=== PATIENT | female | born 1965 | race Caucasian/White ===

== ENCOUNTER 2022-11-26 19:38 | Outpatient (REF) | payer BC, SELFPAY ==
[2022-12-02 11:14] LABS: Age Gdln ACOG Testing Note (.); HPV Aptima Negative (Negative); IGP, Aptima HPV, rfx 16/18,45 Note (.)
== END 2022-11-26 19:39 ==
LOC: LAB 19:38
PROVIDERS: PCP Physician Assistant; Visit Provider Physician Assistant
DX: Z12.4 Encounter for screening for malignant neoplasm of cervix (principal)
CPT/HCPCS: 87624; G0145

== ENCOUNTER 2022-12-29 09:53 | Outpatient (OUT) | payer BC, SELFPAY ==
--- NOTE | 2022-12-29 09:59 | MM_ITS ---
Patient: FRANCK AGUILAR Exam Date: 12/29/2022 : 1965 Gender:F Ordering : QUENTIN Dunn . Admission #: [id number] Family : DUKE SUNG D.OKirby Order #: [id number] CLICK HERE TO VIEW EXAM RADIOLOGY REPORT PROCEDURE: MM TOMOSYNTHESIS SCREENING BI COMPARISON: MG MAMM SCREEN 3D ZEV CAD, 12/25/2021. MG MAMM SCREEN 3D ZEV CAD, 12/20/2020. MG MAMM SCREEN ZEV W CAD, 12/16/2019. MAMMO POST BIOPSY UNILATERAL LEFT, 09/27/2008. INDICATIONS: Screening Calculator Name NCI Breast Cancer Risk Assessment Tool 5 Year Breast Cancer Risk 3.60% Lifetime Breast Cancer Risk 19.30% Personal Breast Cancer No Personal Ovarian Cancer No Treatments None Family Cancers Mother with breast cancer at age 55. LOCATION: [facility] BREAST COMPOSITION: Extremely dense, which lowers the sensitivity of mammography. FINDINGS: DIAGNOSTIC CATEGORY 2--BENIGN FINDING: RIGHT BREAST: No significant suspicious finding. Scattered benign-appearing calcifications are present. No significant change has occurred. LEFT BREAST: No significant suspicious finding. Scattered benign-appearing calcifications are present. No significant change has occurred. RECOMMENDATIONS: ROUTINE MAMMOGRAM AND CLINICAL EVALUATION IN 12 MONTHS. PLEASE NOTE: A NORMAL MAMMOGRAM DOES NOT EXCLUDE THE POSSIBILITY OF BREAST CANCER. A CLINICALLY SUSPICIOUS PALPABLE LUMP SHOULD BE BIOPSIED. Dictated by: Franc Leo M.D. on 12/30/2022 at 09:18 Approved by: Franc Leo M.D. on 12/30/2022 at 09:58
--- NOTE | 2022-12-29 09:59 | XR_ITS ---
[address] [address] Patient Name: FRANCK AGUILAR MRN: [id number] date: 1965 Sex: F Assigned Patient Location: [facility] Current Patient Location: [facility] Accession/Order Number: [id number] Exam Date: 12/29/2022 10:17 Report Date: 12/29/2022 11:07 At the request of: DONNA WIN Procedure: XR DEXA axial skeleton EXAMINATION: XR DEXA axial skeleton HISTORY: Osteoporosis, Well Woman Exam COMPARISON: DEXA bone densitometry 10/09/2020 TECHNIQUE: Dual-energy X-ray absorptiometry (DXA) was performed. FINDINGS: SPINE ANALYSIS: Average bone mineral density is 0.931 g/cm2. T-score (standard deviation relative to young adult mean): -2.1 . -11.6% change since prior study. HIP ANALYSIS: Lowest bone mineral density is within the right femoral trochanter, 0.562 g/cm2. T-score (standard deviation relative to young adult mean): -2.5 . -5.8% change since prior study. IMPRESSION: World [employer] Organization Classification: Osteoporosis - High Fracture Risk Electronically authenticated by: MAYA WOLF Date: 12/29/2022 11:07
== END 2022-12-29 09:54 | disposition home or self-care (01) ==
PROVIDERS: PCP Family Medicine; Visit Provider Physician Assistant
DX: Z12.31 Encounter for screening mammogram for malignant neoplasm of breast (principal); Z80.3 Family history of malignant neoplasm of breast; M81.0 Age-related osteoporosis without current pathological fracture
CPT/HCPCS: 77063; 77067; 77080

== ENCOUNTER 2024-01-01 10:16 | Outpatient (OUT) | payer BC, SELFPAY ==
--- NOTE | 2024-01-01 10:20 | MM_ITS ---
Patient Name: FRANCK AGUILAR MR#: [id number] : 1965 Exam Date: 01/01/2024 Ordering Doctor: DR Stiven Mehta . RADIOLOGY REPORT PROCEDURE: MM TOMOSYNTHESIS SCREENING BI COMPARISON: MM TOMOSYNTHESIS SCREENING BI, 12/29/2022. MG MAMM SCREEN 3D ZEV CAD, 12/25/2021. INDICATIONS: Screening Calculator Name NCI Breast Cancer Risk Assessment Tool 5 Year Breast Cancer Risk 3.70% Lifetime Breast Cancer Risk 18.90% Personal Breast Cancer No Personal Ovarian Cancer No Treatments None Family Cancers Mother with breast cancer at age 55. LOCATION: [facility] BREAST COMPOSITION: The breasts are extremely dense, which lowers the sensitivity of mammography. FINDINGS: DIAGNOSTIC CATEGORY 2--BENIGN FINDING. NO CHANGE FROM COMPARISON. Scattered benign-appearing nodules are present. Scattered benign-appearing calcifications are present. Scattered benign-appearing lymph nodes are present. RIGHT BREAST: No significant suspicious finding. LEFT BREAST: No significant suspicious finding. RECOMMENDATIONS: ROUTINE MAMMOGRAM AND CLINICAL EVALUATION IN 12 MONTHS. PLEASE NOTE: A NORMAL MAMMOGRAM DOES NOT EXCLUDE THE POSSIBILITY OF BREAST CANCER. A CLINICALLY SUSPICIOUS PALPABLE LUMP SHOULD BE BIOPSIED. Dictated by: Brett Rivera MD on 01/01/2024 at 12:57 Approved by: Brett Rivera MD on 01/01/2024 at 12:58
== END 2024-01-01 10:17 | disposition home or self-care (01) ==
LOC: MAMMO 10:16
PROVIDERS: PCP Family Medicine; Visit Provider Obstetrics & Gynecology
DX: Z12.31 Encounter for screening mammogram for malignant neoplasm of breast (principal); Z80.3 Family history of malignant neoplasm of breast
CPT/HCPCS: 77063; 77067

== ENCOUNTER 2024-02-09 19:34 | Outpatient (REF) | payer BC, SELFPAY ==
[2024-02-12 15:10] LABS: Age Gdln ACOG Testing Note (.); HPV Aptima Negative (Negative); IGP, Aptima HPV, rfx 16/18,45 Note (.)
== END 2024-02-09 19:35 | disposition home or self-care (01) ==
LOC: LAB 19:34
PROVIDERS: PCP Family Medicine; Visit Provider Physician Assistant
DX: Z01.419 Encounter for gynecological examination (general) (routine) without abnormal findings (principal)
CPT/HCPCS: 87624; 88175

== ENCOUNTER 2025-01-04 11:20 | Outpatient (OUT) | payer OTHER, SELFPAY ==
--- OUTSIDE RECORDS SUMMARY | 2025-01-04 11:22 | XMS_ITS | Encounter Summary ---
Author Organization [facility] Address [address] [address] Care Team Providers Care [employer] Sales Engineer Name Role Phone Ashish Mcdonald MD Primary Care Provider [phone] Encounter Details Date Type Department Care Team (Late st Contact Info) Description 10/12/2023 Abstract [facility] OB [address] [place] [id number] Tyesha Keenan LPN [address] [place] [address] Social History Tobacco Use Types Packs/Day Years Used Date Smoking Tobacco: Never Assessed Comments No Sex and Gender Information Value Date Recorded Sex Assigned at Female 12/28/2022 11:36 AM EDT Legal Sex Female 6:42 PM EDT Gender Identity Female 12/28/2022 11:36 AM EDT Sexual Orientation Not on file documented as of this encounter Plan of Treatment Upcoming Encounters Date Type Department Care Team (Late st Contact Info) Description 02/13/2025 2:00 PM EDT Office Visit [facility] OB [address] [place] [address] [place] [phone] Erendira Dunn PA [address] [place], [place] [address] documented as of this encounter Visit Diagnoses Not on filedocumented in this encounter Care Teams [employer] Sales Engineer Relationship Specialty Start Date End Date Ashish Mcdonald MD PCP - General Family Medicine 11/26/22 documented as of this encounter
--- OUTSIDE RECORDS SUMMARY | 2025-01-04 11:22 | XMS_ITS | Clinical Summary ---
Author Organization [facility] Address [address] [place] [address] Phone Care Team Providers Care Control Room Agent Name Role Phone Unavailable Primary Care Provider Unavailabl e Social History Tobacco Use Types Packs/Day Years Used Date Smoking Tobacco: Never Assessed Comments Unknown Sex and Gender Information Value Date Recorded Sex Assigned at Not on file Legal Sex Female 3:30 PM EST Gender Identity Not on file Sexual Orientation Not on file Last Filed Vital Signs Vital Sign Reading Time Taken Comments Blood Pressure - - Pulse - - Temperature - - Respiratory Rate - - Oxygen Saturation - - Inhaled Oxygen Concentration - - Weight 62.6 kg (138 lb) 11/25/2021 8:38 AM EDT Height 167.6 cm (5' 6 ) 11/25/2021 8:38 AM EDT Body Mass Index 22.27 11/25/2021 8:38 AM EDT Plan of Treatment Health Maintenance Due Date Last Done Comments CT Colonography 1965 Colonoscopy 1965 Colorectal Cancer Screening 1965 FIT-DNA (Cologuard) 1965 FIT 1965 HIV Screening 1965 Lipid Panel 1965 Sigmoidoscopy 1965 Yearly Adult Physical 1965 MMR Vaccines (1 of 1 - Standard series) 1965 Hepatitis C Screening 1982 HPV/Cotest 1985 DTaP/Tdap/Td Vaccines (1 - Tdap) 1986 Mammogram 2004 Cervical Cancer Screening 05/23/2006 Pap Smear 05/23/2006 05/23/2003, 07/2 02/2002, 01/12/2001, Additional history exists Pneumococcal Vaccine (1 of 1 - PCV) 2014 Zoster Vaccines (1 of 2) 2014 COVID-19 Vaccine (1 - season) 2024 Influenza Vaccine (#1) 2025 RSV High Risk: (Elderly (60+) or Population) (1 - 1-dose 75+ series) 2039 HIB Vaccines Aged Out No longer eligi ble based on patient's age to complete this topic HPV Vaccines (No Doses Required) Completed Hepatitis A Vaccines Aged Out No long er eligible based on patient's age to complete this topic Hepatitis B Vaccines Aged Out No long er eligible based on patient's age to complete this topic IPV Vaccines Aged Out No longer eligi ble based on patient's age to complete this topic Meningococcal Vaccine Aged Out No jose katarina eligible based on patient's age to complete this topic Rotavirus Vaccines Aged Out No longer eligible based on patient's age to complete this topic Procedures Procedure Name Priority Date/Time Associated Diagnosis Comments CONVERTED DIRECTOR MARKETING COMMUNICATIONS CYTOLOGY Routine 05/23/2003 12:00 AM EST from Last 3 Months or Most Recently Relevant to Health Maintenance Results * CONVERTED DIRECTOR MARKETING COMMUNICATIONS CYTOLOGY (05/23/2003 12:00 AM EST) Pathology Report Date of Procedure: 05/23/2003 Pathologist: [facility], Cytology Date Reported: 06/02/2003 Date Received: 05/24/2003 Submitting Physician: CARA MEYER M.D. Attending Physician: ANNEMARIE TERESA FINAL CYTOLOGICAL INTERPRETATION A. THINPREP PAP ECTOCERVICAL/ENDOC ERVICAL: Specimen adequacy: SATISFACTORY FOR EVALUATION. Quality Indicator: Endocervical/trans formation zone elements are present. General Categorization: NEGATIVE FOR INTRAEPITHELIAL LESION OR MALIGNANCY. Ancillary Testing: Specimen does not meet the requisition-stated criteria for HPV testing. See Pap test interpretation above. Electronically Signed Out By [facility], Cytology//NJK By the signature on this report, the individual or group listed as making the Final Interpretation/Louise gnosis certifies that they have reviewed this case. Educational Note: Cervical cytology is a screening procedure primarily for squamous cancers and precursors and has associated false-negative and false-positive results as evidenced by published data. Your patient's test should be interpreted in this context, together with patient's history and clinical findings. Regular sampling and follow-up of unexplained clinical signs and symptoms are recommended to minimize false negative results. Clinical History Date of Last Menstrual Period: (Not Entered) Other Clinical Conditions: Reflex HPV Testing Ordered Annual Source of Specimen A: THINPREP PAP ECTOCERVICAL/ENDOC ERVICAL [facility] Department of Pathology [address] [place] [address] [facility] CONVERTED FINAL DIAGNOSIS A. THINPREP PAP ECTOCERVICAL/ENDOC ERVICAL: Specimen adequacy: SATISFACTORY FOR EVALUATION. Quality Indicator: Endocervical/trans formation zone elements are present. General Categorization: NEGATIVE FOR INTRAEPITHELIAL LESION OR MALIGNANCY. Ancillary Testing: Specimen does not meet the requisition-stated criteria for HPV testing. See Pap test interpretation above. [facility] CONVERTED FINAL REPORT PDF LINK TO COPY AND PASTE \\copathshare\copa th\PDF [id number] [facility] TPP ECTO/ENDO 05/23/2003 05/24/2003 6:18 PM EST us Cara Meyer MD LAB CYTOLOGY ORDERABLES Final Result [facility] [address] [place] [address] from Last 3 Months or Most Recently Relevant to Health Maintenance
--- OUTSIDE RECORDS SUMMARY | 2025-01-04 11:22 | XMS_ITS | Encounter Summary ---
Author Organization [facility] Address [address] [facility] [place] [address] Care Team Providers Care Cloth Printer Name Role Phone Ashish Mcdonald MD Primary Care Provider Encounter Details Date Type Department Care Team (Late st Contact Info) Description 01/01/2024 Clinisync Result Encounter [facility] External Department Unsolicited Stiven Mehta DO [address] [facility] [address] [place], [place] [address] Social History Tobacco Use Types Packs/Day Years [...] 02/13/2025 2:00 PM EDT Office Visit [facility] [address] [facility] [place] [address] Erendira Dunn PA [address] [facility] [address] [place], [place] [phone] documented as of this encounter Procedures Procedure Name Priority Date/Time Associated Diagnosis Comments MM TOMOSYNTHESIS SCREENING BI 01/01/2024 12:58 PM EDT documented in this encounter Results * MM TOMOSYNTHESIS SCREENING BI (01/01/2024 12:58 PM EDT) Anatomical Region Laterality Modality Other 01/01/2024 12:5 8 PM EDT Narrative 01/01/2024 12:59 [place] [address] Mammography Report Signed Patient: FRANCK MCKENZIE MR#: [id number] : 1965 Acct:[id number] Age/Sex: 58 / F ADM Date: 01/01/24 Loc: MAMMO Attending Dr: Stiven Mehta D.O. Ordering Physician: Stiven Mehta D.O. Results: Date of Service: 01/01/24 Follow Up: Procedure(s): MM tomosynthesis screening BI Accession Number(s): [id number] cc: ASHISH MCDONALD; Stiven Mehta D.O. Patient Name: FRANCK MCKENZIE MR#: [id number] : 1965 Exam Date: 01/01/2024 Ordering Doctor: DR Stiven Mehta . RADIOLOGY REPORT PROCEDURE: MM TOMOSYNTHESIS SCREENING BI COMPARISON: MM TOMOSYNTHESIS SCREENING BI, 12/29/2022. MG MAMM SCREEN 3D ZEV CAD, 12/25/2021. INDICATIONS: Screening Calculator Name NCI Breast Cancer Risk Assessment Tool 5 Year Breast Cancer Risk 3.70% Lifetime Breast Cancer Risk 18.90% Personal Breast Cancer No Personal Ovarian Cancer No Treatments None Family Cancers Mother with breast cancer at age 55. LOCATION: The BREAST COMPOSITION: The breasts are extremely dense, which lowers the sensitivity of mammography. FINDINGS: DIAGNOSTIC CATEGORY 2--BENIGN FINDING. NO CHANGE FROM COMPARISON. Scattered benign-appearing nodules are present. Scattered benign-appearing calcifications are present. Scattered benign-appearing lymph nodes are present. RIGHT BREAST: No significant suspicious finding. LEFT BREAST: No significant suspicious finding. RECOMMENDATIONS: ROUTINE MAMMOGRAM AND CLINICAL EVALUATION IN 12 MONTHS. PLEASE NOTE: A NORMAL MAMMOGRAM DOES NOT EXCLUDE THE POSSIBILITY OF BREAST CANCER. A CLINICALLY SUSPICIOUS PALPABLE LUMP SHOULD BE BIOPSIED. Dictated by: Brett Rivera MD on 01/01/2024 at 12:57 Approved by: Brett Rivera MD on 01/01/2024 at 12:58 Dictated By: Brett Rivera M.D. Signed By: 01/01/24 1259 DD/ 1258 TD/TT: Ship Cleaner: Procedure Note Radiology, Radiologist, MD - 01/01/2024 [place] [address] Mammography Report Signed Patient: FRANCK MCKENZIE MMR#: [id number] : 1965Acct:[id number] Age/Sex: 58 / FADM Date: 01/01/24 Loc: MAMMO Attending Dr: Stiven Mehta D.O. Ordering Physician: Stiven Mehta D.O.Results: Date of Service: 01/01/24Follow Up: Procedure(s): MM tomosynthesis screening BI Accession Number(s): [id number] cc: ASHISH MCDONALD; Stiven Mehta D.O. Patient Name: FRANCK MCKENZIE MR#: [id number] : 1965 Exam Date: 01/01/2024 Ordering Doctor: DR Stiven Mehta . RADIOLOGY REPORT PROCEDURE: MM TOMOSYNTHESIS SCREENING BI COMPARISON: MM TOMOSYNTHESIS SCREENING BI, 12/29/2022. MG MAMM [id number] ZEV CAD, 12/25/2021. INDICATIONS: Screening Calculator Name NCI Breast Cancer Risk Assessment Tool 5 Year Breast Cancer Risk 3.70% Lifetime Breast Cancer Risk 18.90% Personal Breast Cancer No Personal Ovarian Cancer No Treatments None Family Cancers Mother with breast cancer at age 55. LOCATION: The BREAST COMPOSITION: The breasts are extremely dense, which lowers the sensitivity of mammography. FINDINGS: DIAGNOSTIC CATEGORY 2--BENIGN FINDING. NO CHANGE FROM COMPARISON. Scattered benign-appearing nodules are present. Scatteredbenign-appearing calcifications are present. Scattered benign-appearing lymph nodes are present. RIGHT BREAST: No significant suspicious finding. LEFT BREAST: No significant suspicious finding. RECOMMENDATIONS: ROUTINE MAMMOGRAM AND CLINICAL EVALUATION IN 12 MONTHS. PLEASE NOTE: A NORMAL MAMMOGRAM DOES NOT EXCLUDE THE POSSIBILITY OFBREAST CANCER. A CLINICALLY SUSPICIOUS PALPABLE LUMP SHOULD BE BIOPSIED. Dictated by: Brett Rivera MD on 01/01/2024 at 12:57 Approved by: Brett Rivera MD on 01/01/2024 at 12:58 Dictated By: Brett Rivera M.D. Signed By:01/01/24 1259 DD/ 1258 TD/TT: Ship Cleaner: us Stiven Janine DO [facility] Final Result documented in this encounter Visit Diagnoses Not on filedocumented in this encounter Care Teams Cloth Printer Relationship Specialty Start Date End Date Ashish Mcdonald MD PCP - General Family Medicine 11/26/22 documented as of this encounter
--- OUTSIDE RECORDS SUMMARY | 2025-01-04 11:22 | XMS_ITS | Encounter Summary ---
Author Organization [facility] Address [address] [facility] [place] [address] Care Team Providers Care Avaya Engineer Name Role Phone Ashish Mcdonald MD Primary Care Provider Encounter Details Date Type Department Care Team (Late st Contact Info) Description 03/15/2024 Abstract [facility] OB [address] [facility] [facility] [place] [phone] Stiven Mehta DO [address] [facility] [address] [place], [place] [address] Social History Tobacco Use Types Packs/Day Years [...] 02/13/2025 2:00 PM EDT Office Visit [facility] OB [address] [place] [address] [place] [phone] Erendira Dunn PA [address] [place], [place] [address] documented as of this encounter Visit Diagnoses Not on filedocumented in this encounter Care Teams Avaya Engineer Relationship Specialty Start Date End Date Ashish Mcdonald MD PCP - General Family Medicine 11/26/22 documented as of this encounter
--- OUTSIDE RECORDS SUMMARY | 2025-01-04 11:22 | XMS_ITS | Encounter Summary ---
Author Organization [facility] Address [address] [facility] [place] [address] Care Team Providers Care Waste Reclaimer Name Role Phone Ashish Mcdonald MD Primary Care Provider Encounter Details Date Type Department Care Team (Late st Contact Info) Description 03/15/2024 Abstract [facility] OB [address] [facility] [place] [phone] Stiven Mehta DO [address] [facility] [address] [place], [place] [address] Social History Tobacco Use Types Packs/Day Years [...] 02/13/2025 2:00 PM EDT Office Visit [facility] OB [address] [place] [address] [place] [phone] Erendira Dunn PA [address] [facility] [address] [place], [place] [address] documented as of this encounter Visit Diagnoses Not on filedocumented in this encounter Care Teams Waste Reclaimer Relationship Specialty Start Date End Date Ashish Mcdonald MD PCP - General Family Medicine 11/26/22 documented as of this encounter
--- OUTSIDE RECORDS SUMMARY | 2025-01-04 11:22 | XMS_ITS | Encounter Summary ---
Author Organization [facility] Address [address] [facility] [place] [address] Care Team Providers Care Clinic Cma Name Role Phone Ashish Mcdonald MD Primary Care Provider Encounter Details Date Type Department Care Team (Late st Contact Info) Description 04/11/2024 Abstract [facility] OB [address] [facility] [place] [phone] Stiven Mehta DO [address] [facility] [address] [place], [place] [address] Social History Tobacco Use Types Packs/Day Years [...] 02/13/2025 2:00 PM EDT Office Visit [facility] OB [address] [facility] [place] [place] [phone] Erendira Dunn PA [address] [facility] [address] [place], [place] [address] documented as of this encounter Visit Diagnoses Not on filedocumented in this encounter Care Teams Clinic Cma Relationship Specialty Start Date End Date Ashish Mcdonald MD PCP - General Family Medicine 11/26/22 documented as of this encounter
--- OUTSIDE RECORDS SUMMARY | 2025-01-04 11:22 | XMS_ITS | Clinical Summary ---
Author Organization [facility] Address [address] [facility] [place] [address] Care Team Providers Care Information Management Manager Name Role Phone Ashish Mcdonald MD Primary Care Provider [phone] Allergies No known active allergies Medications No known medications Active Problems Problem Noted Date Diagnosed Date Bladder leak 02/16/2024 Family History Medical History Relation Name Comments No Known Problems Brother Cancer Father No Known Problems Mother No Known Problems Sister Relation Name Status Comments Brother Alive Father Mother Alive Sister Alive Social History Tobacco Use Types Packs/Day Years Used Date Smoking Tobacco: Never Assessed Comments No Sex and Gender Information Value Date Recorded Sex Assigned at Female 12/28/2022 11:36 AM EDT Legal Sex Female 6:42 PM EDT Gender Identity Female 12/28/2022 11:36 AM EDT Sexual Orientation Not on file Last Filed Vital Signs Vital Sign Reading Time Taken Comments Blood Pressure 110/72 02/09/2024 2:03 PM EDT Pulse 72 12/28/2022 11:10 AM EDT Temperature 36.5 C (97.7 F) 12/28/2022 11:10 AM EDT Respiratory Rate - - Oxygen Saturation 98% 12/28/2022 11:10 AM EDT Inhaled Oxygen Concentration - - Weight 66.9 kg (147 lb 6.4 oz) 02/09/2024 2:03 P M EDT Height - - Body Mass Index - - Plan of Treatment Upcoming Encounters Date Type Department Care Team (Late st Contact Info) Description 02/13/2025 2:00 PM EDT Office Visit [facility] OB [address] [place] [phone] Erendira Dunn PA [address] [facility] [place] [address] Insurance BS Care Teams Information Management Manager Relationship Specialty Start Date End Date Ashish Mcdonald MD PCP - General Family Medicine 11/26/22
--- OUTSIDE RECORDS SUMMARY | 2025-01-04 11:22 | XMS_ITS | Patient Health Record ---
Author Organization [facility] Address [address] [place] [address] Care Team Providers Care Manager Strategic Sourcing Name Role Phone Mcdonald, Ashish Primary Care Provider Dr. Ole Cates Unavailable [phone] Allergies No Known Allergies Results Component Value Reference Range Notes Ultrasound : Leg, right Reviewed date:04/13/2024 06:16:22 AM Interpretation:No DVT, Successful Varithena ablation of the treated tributary varicosities of the right great saphenous vein Performing Lab: Notes/Report: No DVT, Successful Varithena ablation of the treated tributary varicosities of the right great saphenous vein Ultrasound : Legs, bilateral Reviewed date:11/03/2024 12:17:01 PM Interpretation:No DVT, Reflux in varicosities Performing Lab: Notes/Report: No DVT, Reflux in varicosities Reason For Referral Reason [id number] x 3: No pre au th required Diagnosis 1 Varicose veins of bi lateral lower extremities with pain (I83.813) Diagnosis 2 Varicose veins of ri ght lower extremity with inflammation (I83.11) Referred Organization [facility] Referred Provider Ole Cervantes Referred Address [address],[place], [place],[address], Referred Provider Specialty Vascular Dev[facility] cecy General Notes Debra Kay 07/2024 11:36:19 AM >spoke with pt, she will wait awhile to schedule due to the warm weather. She will call back. Referral Priority Routine Medications Medication SIG (Take, Route, Frequency, Duration) Notes Start Date End Date Status Cyclobenzaprine HCl 10 MG TAKE 1 TABLET BY MOUTH AT BEDTIME NEEDED FOR BACK PAIN Oral for 24 Days Not-Taking Sulfamethoxazole-Trimethopr im 800-160 MG TAKE 1 TABLET BY MOUTH TWO TIMES A DAY GENERIC FOR SEPTRA DS Oral for 10 Not-Taking Amoxicillin-Pot Clavulanate 875-125 MG TAKE 1 TABLET BY MOUTH 2 TIMES A DAY FOR 7 DAYS Oral for 7 Days Not-Taking Prescription grade compression stockings 20 - 30mmHg as directed thigh high Daily Active Multivitamin - 1 tablet Orally Once a day for 30 day(s) 03/19/2022 Active Prescription grade compression stockings 20 - 30mmHg as directed thigh high Daily Active Immunizations Vaccine Route Administration Date Status Comme nts Influenza, high dose seasonal Unknown 04/07/2019 Refuse d Influenza, seasonal, injecta ble, preservative free, 3 yrs and above Unknown 05/05/2019 Refused Influenza, high dose seasonal Unknown 08/02/2020 Refuse d Influenza, seasonal, injecta ble, preservative free, 3 yrs and above Unknown 05/01/2021 Refused Influenza, seasonal, injecta ble, preservative free, 3 yrs and above Unknown 08/07/2021 Refused Influenza, seasonal, injecta ble, preservative free, 3 yrs and above Unknown 07/18/2022 Refused Influenza, seasonal, injecta ble, preservative free, 3 yrs and above Unknown 08/29/2022 Refused Social History Tobacco Use: Social History Observation Description Date Details (start date - stop date) Former Smoker NA - NA Alcohol Screen (Audit-C) Question Answer Notes Did you have a drink containing alcohol in the p ast year? No Points 0 Interpretation Negative AUDIT-C (Standard) Question Answer Notes Did you have a drink contain ing alcohol in the past year? Yes How often did you have six o r more drinks on one occasion in the past year? Less than monthly (1 point) How many drinks did you have on a typical day when you were drinking in the past year? 1 or 2 drinks (0 point) How often did you have a dri nk containing alcohol in the past year? Never (0 point) Points 1 Interpretation Negative Tobacco Control (Standard) Question Answer Notes Tobacco use: Former smoker Problems Problem Type SNOMED Code ICD Code Onset Dates Problem Status W/U Status Risk Notes Problem Varicose veins o f right lower extremity with inflammation (I83.11) Active confirmed Problem Varicose veins o f left lower extremity with inflammation (I83.12) Active confirmed Problem Pain co-occurrent and due to varicose veins of bilateral legs ([id number]) Varicose veins of bilateral lower extremities with pain (I83.813) Active confirmed Problem Varicose veins o f left lower extremity with inflammation (I83.12) Active confirmed Problem Varicose veins o f left lower extremity with inflammation (I83.12) Active confirmed Vital Signs Heart Rate 74 /min 11/18/2024 Oximetry 98 % 11/18/2024 Blood pressure diastolic 72 mm Hg 11/18/2024 Height 66.5 in 11/18/2024 Blood pressure systolic 112 mm Hg 11/18/2024 Weight 144 lbs 11/18/2024 BMI 22.89 kg/m2 11/18/2024 Encounters Encounter Location Date Provider Diagnosis [facility] [address] [place] [address] 04/11/2024 Dvora Billy Varicose veins of right lower extremity with inflammation I83.11 and Varicose veins of left lower extremity with inflammation I83.12 [facility] [address] [place] [address] 11/02/2024 Dvora [facility] Varicose veins of right lower extremity with inflammation I83.11 and Varicose veins of left lower extremity with inflammation I83.12 [facility] [address] [place] [address] 11/02/2024 Dvora Billy Varicose veins of right lower extremity with inflammation I83.11 and Varicose veins of left lower extremity with inflammation I83.12 [facility] [address] [place] [address] 01/11/2024 Dvora Billy Nonscarring hair los s, unspecified L65.9 [facility] [address] [place] [address] 02/15/2024 Dvora Billy Nonscarring hair los s, unspecified L65.9 [facility] [address] [place] [address] 04/11/2024 Dvora Billy Varicose veins of right lower extremity with inflammation I83.11 and Varicose veins of left lower extremity with inflammation I83.12 [facility] [address] [place] [address] 05/09/2024 Dvora Billy Varicose veins of right lower extremity with inflammation I83.11 and Varicose veins of left lower extremity with inflammation I83.12 [facility] [address] [place] [address] 11/18/2024 Dvora Billy Varicose veins of right lower extremity with inflammation I83.11 and Varicose veins of left lower extremity with inflammation I83.12 [facility] [address] [place] [address] 04/04/2024 Dvora Billy Varicose veins of right lower extremity with inflammation I83.11 and Varicose veins of left lower extremity with inflammation I83.12 Assessments Encounter Date Diagnosis (ICD Code) Assessment Notes Treatment Notes Treatment Clinical Notes Section Notes 04/11/2024 Varicose veins of right lower extremity with inflammation (ICD-10 - I83.11) The results of this ultrasound were discussed directly with Ms. Mckenzie, and she was made aware that there is no evidence of deep venous thrombosis in her treated leg and that the Varithena ablation was successful 11/02/2024 Varicose veins of right lower extremity with inflammation (ICD-10 - I83.11) Ms. Mckenzie was made aware that she has venous reflux in varicosities that would be responsive to chemical ablation. The nature of chemical ablation of her symptomatic varicosities and the risks and benefits of the procedures were reviewed and discussed with the patient at length. Alternatives to treatment including continuing to wear compression stockings or just not proceeding with any procedures was discussed with the patient. The patient was made aware that she is theoretically at increased risk of spontaneous deep venous thrombosis if she does not do preventative measures like wearing compression stockings when she travels. All questions were answered, and she wishes to proceed with the surgical plan and work up. Pending insurance approval she will be scheduled for sclerotherapy since she states that she has already completed a trial of conservative management with prescription grade compression stockings, weight reduction, daily exercise, and periodic leg elevation and she has failed conservative therapy 11/02/2024 Varicose veins of right lower extremity with inflammation (ICD-10 - I83.11) 01/11/2024 Nonscarring hair loss, unspecified (ICD-10 - L65.9) 02/15/2024 Nonscarring hair loss, unspecified (ICD-10 - L65.9) 04/11/2024 Varicose veins of right lower extremity with inflammation (ICD-10 - I83.11) Ms. Mckenzie was made aware that ultrasound demonstrated no evidence of deep venous thrombosis in her treated right leg and the chemical ablation with Varithena was successful. The plan is to proceed with sclerotherapy today. She states that she will go home and look at her calendar before scheduling her next sclerotherapy appointment. She states that she is traveling and would like to schedule her next sclerotherapy after she returns from her flight in a couple of weeks. 05/09/2024 Varicose veins of right lower extremity with inflammation (ICD-10 - I83.11) 11/18/2024 Varicose veins of right lower extremity with inflammation (ICD-10 - I83.11) Ms. Mckenzie stated that she will keep an eye on the weather and will schedule her next sclerotherapy appointment when it is cool enough to wear compresion stockings 04/04/2024 Varicose veins of right lower extremity with inflammation (ICD-10 - I83.11) 04/11/2024 Varicose veins of left lower extremity with inflammation (ICD-10 - I83.12) 11/02/2024 Varicose veins of left lower extremity with inflammation (ICD-10 - I83.12) 11/02/2024 Varicose veins of left lower extremity with inflammation (ICD-10 - I83.12) 04/11/2024 Varicose veins of left lower extremity with inflammation (ICD-10 - I83.12) 05/09/2024 Varicose veins of left lower extremity with inflammation (ICD-10 - I83.12) 11/18/2024 Varicose veins of left lower extremity with inflammation (ICD-10 - I83.12) 04/04/2024 Varicose veins of left lower extremity with inflammation (ICD-10 - I83.12) Plan Of Treatment No Information Insurance Providers Payer Name Payer Address Payer Phone Subscriber Number Group Number Insured Name Patient Relationship to Insured Coverage Start Date Coverage End Date [employer] [address] [place] [address] [id number] Suni Mckenzie Self - patient is the insured Medical (General) History Medical History History ICD Code varicose veins osteoporosis Surgical History Surgery Date(Month/Year) PRP scalp varithena right medial knee 03/2024 varithena left gsv 08/2020 phlebectomy sclerotherapy
--- NOTE | 2025-01-04 11:24 | MM_ITS ---
Patient Name: FRANCK AGUILAR MR#: [id number] : 1965 Exam Date: 01/04/2025 Ordering Doctor: DR KEISHA DAVIS . RADIOLOGY REPORT PROCEDURE: MM TOMOSYNTHESIS SCREENING BI COMPARISON: MM TOMOSYNTHESIS SCREENING BI, 01/01/2024. MM TOMOSYNTHESIS SCREENING BI, 12/29/2022. MG MAMM SCREEN 3D ZEV CAD, 12/25/2021. MAMMO POST BIOPSY UNILATERAL LEFT, 09/27/2008. INDICATIONS: Screening Calculator Name NCI Breast Cancer Risk Assessment Tool 5 Year Breast Cancer Risk 3.90% Lifetime Breast Cancer Risk 18.50% Personal Breast Cancer No Personal Ovarian Cancer No Treatments None Family Cancers Mother with breast cancer at age 55. LOCATION: [facility] BREAST COMPOSITION: The breasts are heterogeneously dense, which may obscure small masses. FINDINGS: RIGHT BREAST: No significant suspicious finding. LEFT BREAST: No significant suspicious finding. DIAGNOSTIC CATEGORY 1--NEGATIVE. RECOMMENDATIONS: ROUTINE MAMMOGRAM AND CLINICAL EVALUATION IN 12 MONTHS. PLEASE NOTE: A NORMAL MAMMOGRAM DOES NOT EXCLUDE THE POSSIBILITY OF BREAST CANCER. A CLINICALLY SUSPICIOUS PALPABLE LUMP SHOULD BE BIOPSIED. Dictated by: Jasson Bell MD on 01/04/2025 at 14:13 Approved by: Jasson Bell MD on 01/04/2025 at 14:15
== END 2025-01-04 11:21 | disposition home or self-care (01) ==
LOC: MAMMO 11:20
PROVIDERS: PCP Family Medicine; Visit Provider Obstetrics & Gynecology
DX: Z12.31 Encounter for screening mammogram for malignant neoplasm of breast (principal); Z80.3 Family history of malignant neoplasm of breast
CPT/HCPCS: 77063; 77067

== ENCOUNTER 2025-02-13 20:24 | Outpatient (REF) | payer OTHER, SELFPAY ==
--- OUTSIDE RECORDS SUMMARY | 2021-06-18 10:15 | XMS_ITS | Continuity of Care Document ---
Author Organization [facility] Address [address] [place] [address] Phone Care Team Providers Care It Coordinator Name Role Phone Franc Hawkins Unavailable Unavailable Procedures Procedure Date CHIROPRACTIC MANIPULATION CHIROPRACTIC MANIPULATION CHIROPRACTIC MANIPULATION CHIROPRACTIC MANIPULATION CHIROPRACTIC MANIPULATION CHIROPRACTIC MANIPULATION CHIROPRACTIC MANIPULATION CHIROPRACTIC MANIPULATION CHIROPRACTIC MANIPULATION CHIROPRACTIC MANIPULATION Advance Directives Directive Yes / No Effective Date File Name No Information Encounters Encounter Description Practice Location Reason(s) For Visit Diagnoses Date Provider Providers Copied on Encounter [facility], [address] [place] [address], [id number] , tel: [phone] [facility] cervical spine (chief complaint) cervical spine (chief complaint) Segmental and somatic dysfunction of cervical regionCervicalgiaSegm ental and somatic dysfunction of lumbar regionLow back pain, unspecified 1 Ross Bruner. [address], [place], [id number] , [place]. tel: [phone] [facility], [address] [place] [address], [id number] , tel: [phone] [facility] thoracic spine (chief complaint) thoracic spine (chief complaint) Segmental and somatic dysfunction of thoracic regionPain in thoracic spineSegmental and somatic dysfunction of lumbar regionLow back pain, unspecified 1 Ross Bruner. [address], [place], [id number] , [place]. tel: [phone] [facility], [address], [place], [id number] , [place] tel: [phone] [facility] cervical spine (chief complaint) cervical spine (chief complaint) Segmental and somatic dysfunction of cervical regionCervicalgiaSegm ental and somatic dysfunction of thoracic region 1 Ross Bruner. [address], [place], [id number] , [place]. tel: [phone] [facility], [address] [place] [address], [id number] , [place] tel: [phone] [facility] thoracic spine (chief complaint) thoracic spine (chief complaint) Segmental and somatic dysfunction of thoracic regionPain in thoracic spineSegmental and somatic dysfunction of cervical region 0 Ross Bruner. [address] [place] [address], [id number] , [place]. tel: [phone] [facility], [address] [place] [address], [id number] , [place] tel: [phone] [facility] cervical spine (chief complaint) cervical spine (chief complaint) Segmental and somatic dysfunction of cervical regionCervicalgiaSegm ental and somatic dysfunction of lumbar region 9 Ross Bruner. [address] [place] [address], [id number] , [place]. tel: [phone] [facility], [address] [place] [address], [id number] , [place] tel: [phone] [facility] cervical spine (chief complaint) cervical spine (chief complaint) Segmental and somatic dysfunction of cervical regionCervicalgiaSegm ental and somatic dysfunction of lumbar regionLow back pain 9 Ross Bruner. [address] [place] [address], [id number] , [place]. tel: [phone] [facility], [address] [place] [address], [id number] , [place] tel: [phone] [facility] lumbar spine (chief complaint) lumbar spine (chief complaint) Segmental and somatic dysfunction of cervical regionCervicalgiaSegm ental and somatic dysfunction of lumbar region 3 0201 9 Ross Bruner. [address], [place], [id number] , [place]. tel: [phone] [facility], [address] [place] [address], [id number] , [place] tel: [phone] [facility] cervical spine (chief complaint) cervical spine (chief complaint) Segmental and somatic dysfunction of cervical regionCervicalgiaSegm ental and somatic dysfunction of thoracic region 0 9 Ross Bruner. [address] [place] [address], [id number] , [place]. tel: [phone] [facility], [address] [place] [address], [id number] , [place] tel: [phone] [facility] cervical spine (chief complaint) cervical spine (chief complaint) Segmental and somatic dysfunction of cervical regionCervicalgiaSegm ental and somatic dysfunction of thoracic region 0 5201 9 Ross Bruner. [address] [place] [address], [id number] , [place]. tel: [phone] [facility], [address] [place] [address], [id number] , [place] tel: [phone] [facility] cervical spine (chief complaint) cervical spine (chief complaint) Segmental and somatic dysfunction of cervical regionCervicalgiaSegm ental and somatic dysfunction of lumbar region Fe0 8 9 Ross Bruner. [address] [place] [address], [id number] , [place]. tel: [phone] [facility], [address] [place] [address], [id number] , [place] tel: [phone] [facility] thoracic spine (chief complaint) thoracic spine (chief complaint) Segmental and somatic dysfunction of lumbar regionLow back painSegmental and somatic dysfunction of cervical region 8 Ross Bruner. [address], [place], [id number] , [place]. tel: [phone] [facility], [address], [place], [id number] , [place] tel: [phone] [facility] cervical spine (chief complaint) cervical spine (chief complaint) Segmental and somatic dysfunction of thoracic regionPain in thoracic spineSegmental and somatic dysfunction of cervical region 8 Ross Bruner. [address], [place], [id number] , [place]. tel: [phone] [facility], [address] [place] [address], [id number] , [place] tel: [phone] [facility] cervical spine (chief complaint) cervical spine (chief complaint) Segmental and somatic dysfunction of cervical regionCervicalgiaSegm ental and somatic dysfunction of thoracic region 8 Ross Bruner. [address], [place], [id number] , [place]. tel: [phone] [facility], [address], [place], [id number] , [place] tel: [phone] [facility] Spine Care (chief complaint) Segmental and somatic dysfunction of cervical regionCervicalgiaSegm ental and somatic dysfunction of thoracic region 8 Ross Bruner. [address], [place], [id number] , [place]. tel: [phone] [facility], [address] [place] [address], [id number] , [place] tel: [phone] [facility] Spine Care (chief complaint) Segmental and somatic dysfunction of cervical regionCervicalgiaRadi culopathy, cervical regionSegmental and somatic dysfunction of thoracic region 0 8 Ross Bruner. [address] [place] [address], [id number] , [place]. tel: [phone] [facility], [address], [place], [id number] , [place] tel: [phone] [facility] Spine Care (chief complaint) Segmental and somatic dysfunction of cervical regionCervicalgiaRadi culopathy, cervical regionSegmental and somatic dysfunction of thoracic region Sep-0 5-201 8 Ross Bruner. [address] [place] [address], [id number] , [place]. tel: [phone] [facility], [address], [place], [id number] , [place] tel: [phone] [facility] Spine Care (chief complaint) Segmental and somatic dysfunction of cervical regionCervicalgiaRadi culopathy, cervical regionSegmental and somatic dysfunction of thoracic region Apr-0 2-201 8 Ross Bruner. [address] [place] [address], [id number] , [place]. tel: [phone] [facility], [address] [place] [address], [id number] , tel: [phone] [facility] Spine Care (chief complaint) Segmental and somatic dysfunction of cervical regionCervicalgiaRadi culopathy, cervical regionSegmental and somatic dysfunction of thoracic region Aug-2 8 Ossipeejessika Bruner. [address] [place] [address], [id number] , [place]. tel: [phone] Family History Family Member Type Diagnosis Age At Onset No Information Payers Payer name Insurance type Covered libertarian ID Twan rios(s) [facility] [id number] Social History Type Description Quantity Date Captured Comments Alcohol Use Details Unknown Caffeine Use Details Unknown Tobacco Use Status No Information Smoking Status No Information Sex Female Sexual Orientation Straight or heterosexual Jun Gender Identity Female Chief Complaint And Reason For Visit From encounter dated '06/18/2021 14:15'. cervical spine (chief complaint) cervical spine (chief complaint). Description: Pt reports soreness in neck and left low back/hip this week Reason For Referral Reason For Referral No Information History Of Present Illness Encounter Date Complaint History Of Prese nt Illness cervical spine cervical spine Pt reports kain ess in neck and left low back/hip this week thoracic spine thoracic spine Pt reports kain ess in mid back this week. cervical spine Pt reports kain ess in neck and upper back this week. cervical spine thoracic spine thoracic spine Pt reports pain in between shoulder blades on the left for last few days. cervical spine Pt reports kain ess/stiffness in neck and upper back. cervical spine cervical spine cervical spine Pt reports pain in neck extending in to left trap for last 4 days after deep cleaning in house. Pt also reports general soreness in low back and SI's. lumbar spine lumbar spine Pt reports kain ess in neck and low back from traveling. cervical spine cervical spine Pt reports trave ling a lot by car and sore in neck and mid back. cervical spine cervical spine Pt reports kain ess in neck from traveling a lot this month. cervical spine cervical spine Pt reports tight ness in neck/upper back. thoracic spine thoracic spine Reports generali zed soreness in neck, mid and left low back/hip. cervical spine cervical spine Reports neck and mid back soreness. Areas of chronic tightness around T12. cervical spine cervical spine Reports general neck/upper back tightness. Spine Care Reports mid back starting to feel better. Feels tightness in neck. Spine Care Reports no numbn ess/tingling in arm/hand. Still has hot spot at T12 on Left. Spine Care Reports regainin g strength in right tricep. Spine Care Reports weakness in right tricep while exercising. Feels like there's a pinched nerve. Spine Care C/O neck pain wi th onset last week after working on laptop for long stretch.No specific injury or trauma is noted. Pain primarily at the cervicobrachial area and extends out to the trap and scapular boarder on the Rt. & Lt. Pain is local, dull, and radiates down right arm to 4th and 5th digits.Sx present with a pain scale of 5 (VAS = 1-10). No change in the pain pattern from the onset of Sx. No significant prior history of neck pain with this pattern. Functional Status Date Functional Assessmen t No Information Instructions Date Instruction Additional Infor mation No Information Assessments Type Assessment Date assessment Segmental and somatic dysfunctio n of cervical region assessment Cervicalgia assessment Segmental and somatic dysfunctio n of lumbar region assessment Low back pain, unspecified impression Patient Care Teams Name Effective Dates (start - stop) Status Members No Information
--- OUTSIDE RECORDS SUMMARY | 2025-02-13 14:00 | XMS_ITS | Encounter Summary ---
Author Organization [facility] Address [address] [facility] [place] [address] Care Team Providers Care [employer] Name Role Phone Ashish Mcdonald MD Primary Care Provider Reason for Visit * Reason Comments Well Women Visit Encounter Details Date Type Department Care Team (Late st Contact Info) Description 02/13/2025 2:00 PM EDT Office Visit [facility] [address] [place] [id number] Erendira Dunn PA [address] [place] [address] Well woman exam with routine gynecological exam; Breast cancer screening by mammogram; Postmenopausal state Social History Tobacco Use Types Packs/Day Years Used Date Smoking Tobacco: Never Assessed Comments No Sex and Gender Information Value Date Recorded Sex Assigned at Female 12/28/2022 11:36 AM EDT Legal Sex Female 6:42 PM EDT Gender Identity Female 12/28/2022 11:36 AM EDT Sexual Orientation Not on file documented as of this encounter Last Filed Vital Signs Vital Sign Reading Time Taken Comments Blood Pressure 112/64 02/13/2025 2:31 PM EDT Pulse - - Temperature - - Respiratory Rate - - Oxygen Saturation - - Inhaled Oxygen Concentration - - Weight 64.8 kg (142 lb 12.8 oz) 02/13/2025 2:31 PM EDT Height - - Body Mass Index - - documented in this encounter Progress Notes * QUENTIN Hannah - 02/13/2025 2:00 PM EDT Reason for Appointment: Patient ID: Suni Mckenzie is a 59 y.o. female who presents for Well Women Visit Patient presents today for Annual Exam. MEDICATIONS No current outpatient medications ALLERGIES No Known Allergies PROBLEMS Active Ambulatory Problems Diagnosis Date Noted Bladder leak 02/16/2024 Resolved Ambulatory Problems Diagnosis Date Noted No Resolved Ambulatory Problems No Additional Past Medical History HISTORY PAST MEDICAL HISTORY SOCIAL HISTORY History reviewed. No pertinent past medical history. Social History Tobacco Use Smoking status: Not on file Smokeless tobacco: Not on file Substance Use Topics Alcohol use: Not on file Drug use: Not on file FAMILY HISTORY Family History Problem Relation Name Age of Onset No Known Problems Mother Cancer Father No Known Problems Sister No Known Problems Brother SURGICAL HISTORY Past Surgical History: Procedure Laterality Date BREAST BIOPSY 2008 REVIEW OF SYSTEMS Review of Systems: Review of Systems Constitutional: Negative. HENT: Negative. Eyes: Negative. Respiratory: Negative. Cardiovascular: Negative. Gastrointestinal: Negative. Genitourinary: Negative. Musculoskeletal: Negative. Skin: Negative. Neurological: Negative. All other systems reviewed and are negative. Hematological: Negative. Endocrine: Negative. Allergic/Immunologic: Negative. OBJECTIVE Objective: Physical Exam Constitutional: Appearance: Normal appearance. She is well-developed. Genitourinary: Vulva normal. Cardiovascular: Rate and Rhythm: Normal rate and regular rhythm. Pulmonary: Effort: Pulmonary effort is normal. Breath sounds: Normal breath sounds. Abdominal: General: Bowel sounds are normal. There is no distension. Palpations: Abdomen is soft. Tenderness: There is no abdominal tenderness. There is no guarding or rebound. Musculoskeletal: General: No swelling. Normal range of motion. Right lower leg: No edema. Left lower leg: No edema. Neurological: Mental Status: She is alert and oriented to person, place, and time. Skin: General: Skin is warm and dry. Psychiatric: Mood and Affect: Mood normal. Behavior: Behavior normal. Vitals and nursing note reviewed. Exam conducted with a winter sports manager present. Vitals: There is no height or weight on file to calculate BMI. BP: 112/64 No LMP recorded. Patient is postmenopausal. ASSESSMENT & PLAN ICD-10-CM 1. Well woman exam with routine gynecological exam Z01.419 THIN PREP TIS PAP AND HR HPV DNA 2. Breast cancer screening by mammogram Z12.31 3. Postmenopausal state Z78.0 DEXA bone density Annual Exam: Patient presents today for an annual exam. Patient states she is doing well and has no complaints. Pap was obtained without difficulty. Orders Placed This Encounter Procedures DEXA bone density Patient doing well, states pelvic floor therapy worked wonders. She does not desire any medicationsfor osteoporosis if needed Follow Up: Patient is to return in one year for annual unless needed otherwise. Documented by Wilda Mcgrath LPN on behalf of: QUENTIN Hannah documented in this encounter Plan of Treatment Upcoming Encounters Date Type Department Care Team (Late st Contact Info) Description 02/20/2026 2:00 PM EDT Procedure Visit [facility] [address] [place] [address] Erendira Dunn PA [address] [place] [address] Scheduled Orders Name Type Priority Associated Diagnoses Orde r Schedule DEXA bone density Imaging Routine Postmenopausal state Expected: 02/13/2025 (Approximate), Expires: 02/13/2026 THIN PREP TIS PAP AND HR HPV DNA Pathology and Cytology Routine Well woman exam with routine gynecological exam Ordered: 02/13/2025 documented as of this encounter Procedures Procedure Name Priority Date/Time Associated Diagnosis Comments PAP SMEAR Routine 02/09/2024 12:00 AM EDT documented in this encounter Results * Pap Smear (02/09/2024 12:00 AM EDT) Swab Cervical swab / Unknown us Erend[facility] ORDERABLES Final Re sult EXTERNAL LAB documented in this encounter Visit Diagnoses Diagnosis Well woman exam with routine gynecological exam Routine gynecological examination Breast cancer screening by mammogram Postmenopausal state Asymptomatic postmenopausal status (age-related) (natural) documented in this encounter Care Teams [employer] Relationship Specialty Start Date End Date Ashish Mcdonald MD [address] [place] [place] [id number] PCP - General Family Medicine 11/26/22 documented as of this encounter
--- OUTSIDE RECORDS SUMMARY | 2025-02-13 20:35 | XMS_ITS | Patient Health Record ---
Author Organization [facility] Address [address] [place] [address] Care Team Providers Care [employer] Name Role Phone Mcdonald, Ashish Primary Care Provider Dr. 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,[place], [place],[address], Referred Provider Specialty Vascular [place] General [...] due to varicose veins of bilateral legs ([id number]) Varicose veins of bilateral lower extremities [...] Provider Diagnosis [facility] [address] [place] [address] 04/11/2024 Dvora [facility] Varicose veins of right lower extremity with inflammation I83.11 and Varicose veins of left lower extremity with inflammation I83.12 [facility] [address] [place] [address] 11/02/2024 Dvora [facility] Varicose veins of right lower extremity with inflammation I83.11 and Varicose veins of left lower extremity with inflammation I83.12 [facility] [address] [place] [address] 11/02/2024 Dvora [facility] Varicose veins of right lower extremity with inflammation I83.11 and Varicose veins of left lower extremity with inflammation I83.12 [facility] [address] [place] [address] 02/15/2024 Dvora [facility] Nonscarring hair los s, unspecified L65.9 [facility] [address] [place] [address] 04/11/2024 Dvora [facility] Varicose veins of right lower extremity with inflammation I83.11 and Varicose veins of left lower extremity with inflammation I83.12 [facility] [address] [place] [address] 05/09/2024 Dvora [facility] Varicose veins of right lower extremity with inflammation I83.11 and Varicose veins of left lower extremity with inflammation I83.12 [facility] [address] [place] [address] 11/18/2024 Dvora [facility] Varicose veins of right lower extremity with inflammation I83.11 and Varicose veins of left lower extremity with inflammation I83.12 [facility] [address] [place] [address] 04/04/2024 Dvora [facility] Varicose veins of right [...] lower extremity with inflammation (ICD-10 - I83.11) 02/15/2024 Nonscarring hair loss, unspecified (ICD-10 - [...] Coverage Start Date Coverage End Date [employer] [id number] [place] [address] [id number] Suni Mckenzie Self - patient is the insured Medical (General) History Medical History History ICD Code varicose veins osteoporosis Surgical History Surgery Date(Month/Year) PRP scalp varithena right medial knee 03/2024 varithena left gsv 08/2020 phlebectomy sclerotherapy
--- OUTSIDE RECORDS SUMMARY | 2025-02-13 20:35 | XMS_ITS | CCD ---
Author Organization [facility] Care Team Providers Care Chemical Sales Representative Name Role Phone Kennedy Arora Attending Provider [phone] NO FAMILY, PHYSICIAN Primary Care Provider Unava ilable None, No PCP Unavailable Unavailable Unavailable Unavailable Duke Sung Unavailable JANINE, DR VALDES Consulting Unavailable JANINE, DR VALDES Attending Unavailable DILLON, DR GORMAN Primary Care Unavailable JANINE, DR VALDES Admitting Unavailable LUCIANO, DR FRANC Espinoza Consulting Unavailable DO Duke Sung Primary Care Provider MD Rio Walton Attending Provider DO Duke Sung Primary Care Provider DO Duke Sung Attending Provider LUANN Camp Attending Provider [phone] Milagros Camp Unavailable MD Rio [place] Attending Provider ERENDIRA WIN Attending Unavailable ERENDIRA WIN Attending Unavailable Duke Sung DO Primary Care Provider Erendira Win PA-C Attending Provider Duke Sung MD Primary Care Provider [phone] Duke Sung Primary Care Unavailable Erendira Win Admitting Unavailable Erendira Win Attending Unavailable Duke Sung Attending Unavailable Duke Sung Admitting Unavailable Duke Sung Primary Care Unavailable Duke Sung MD Primary Care Provider [phone] Duke Sung MD Primary Care Provider Duke Sung MD Primary Care Provider Medications Current Medications Medication Drug Class(es) Dates Sig (Normalized) Sig (Original) ascorbic acid 1000 mg oral tablet (1 source) Vitamin C take 1 tablet by mouth every twenty-four hours Vitamin C 1000 MG 1 tablet Orally Once a day Active Calcium (5 sources) Phosphate Binder, Calcium Calcium Active Calcium + D 315-200 MG-UNIT (4 sources) take 1 tablet by mouth twice daily Calcium + D 315-200 MG-UNIT 1 tablet Orally Twice a day Active cholecalciferol 0.025 mg oral capsule (1 source) Vitamin D take 1 capsule by mouth every twenty-four hours Vitamin D3 25 MCG (1000 UT) 1 capsule Orally Once a day Active Multivitamin preparation (7 sources) Multivitamin Active predniSONE 20 mg oral tablet (6 sources) Start: 09-11-2022 take 2 tablets by mouth every twenty-four hours predniSONE 20 MG 2 tablets Orally Once a day for 5 days Aug, Active Start: 11-25-2021 take 1 tablet by pasquale th once daily at mealtime predniSONE 50 MG Oral Tablet TAKE 1 TABLET DAILY WITH FOOD. Quantity: 5 Refills: 0 Ordered: 25-Nov-2021 Samir Medeiros MD Start : 25-Nov-2021 Active triamcinolone acetonide 5 mg/ml topical cream (1 source) Corticosteroid Start: 11-28-2024 Triamcinolone Acetonide 0.5 % cream Active 1 APPLIC TOPICAL Twice daily 15 November 28, 2024 12:00am vitamin B12 (4 sources) Vitamin B12 Vitamin B12 Acti ve Vitamin C 1000 MG (6 sources) take 1 tablet by mouth once daily Vitamin C 1000 MG 1 tablet Orally Once a day Active Vitamin D3 25 MCG (1000 UT) (1 source) take 1 capsule by mouth once daily Vitamin D3 25 MCG (1000 UT) 1 capsule Orally Once a day Active Completed/Discontinued Medications Medication Drug Class(es) Dates Sig (Normalized) Sig (Original) amoxicillin 875 mg / clavulanate 125 mg oral tablet (10 sources) Penicillin-class Antibacterial Start: 08-28-2023 End: 10-05-2024 take 1 tablet by mouth twice daily Amoxicillin-Pot Clavulanate 875-125 mg tablet Discontinued 1 TAB PO Twice daily 14 January 26, 2024 1:31pm October 05, 2024 11:28am Start: 05-21-2022 take 1 tablet by pasquale th every twelve hours Amoxicillin-Pot Clavulanate 875-125 MG 1 tablet Orally every 12 hrs for 7 day(s) Apr, Active Nxyocqiuogaohaz-Qefgeslsu-Km (Bromfed Dm) 2-30-10 mg/5 mL syrup (4 sources) Start: 08-25-2023 End: 08-28-2023 take 1 mL by mouth every four to six hours as needed Yuaofqexqmbsmte-Eelryhufo-Ho (Bromfed Dm) 2-30-10 mg/5 mL syrup Discontinued 10 ML PO EVERY 4-6 HOURS as needed for sinus symptoms 420 August 25, 2023 1:00am August 28, 2023 11:16am Start: 08-25-2023 End: 08-28-2023 take 1 mL by mouth every four to six hours as needed Rsqdbjisffhvbcb-Rtfpbyiec-Jh (Bromfed Dm ) 2-30-10 mg/5 mL syrup Discontinued 10 ML PO EVERY 4-6 HOURS as needed for sinus symptoms 420 August 25, 2023 12:00am August 28, 2023 10:16am Start: 08-25-2023 End: 08-28-2023 take 1 mL by mouth every four to six hours Icqaipdbrwnjssi-Zznolgygx-Xf (Bromfed Dm ) 2-30-10 mg/5 mL syrup Discontinued 10 ML PO EVERY 4-6 HOURS 420 August 25, 2023 1:00am August 28, 2023 11:16am dextromethorphan hydrobromide 15 mg / guaiFENesin 400 mg / pseudoephedrine hydrochloride 60 mg oral tablet (4 sources) alpha-Adrenergic Agonist, Uncompetitive K-wykohg-J-aspartate Receptor Antagonist, Sigma-1 Agonist Start: 08-28-2023 End: 10-05-2024 take 4 tablets by mouth every twenty-four hours as needed Ilaartdvvheswgf-Wo-Fhbbliuqjpr (Capmist Dm) 60-15-400 mg tablet Discontinued 1 TAB PO Every 6 hours as needed for cold symptoms 20 August 28, 2023 1:00am October 05, 2024 11:28am do not exceed 4 doses per 24 hrs Problems Active Problems Problem Classification Problem Date Documented Date Episodic/Chronic Acute and chronic tonsillitis (1 source) Acute tonsillitis, unspecified Episodic Fracture of lower limb (4 sources) Fracture of tibial plateau; Translations: [Closed fracture of upper end of tibia alone] Episodic Genitourinary symptoms and ill-defined conditions (4 sources) Urinary incontinence; Translations: [Unspecified urinary incontinence] Onset: 02-16-2024 02-16-2024 Chronic Joint disorders and dislocations; trauma-related (5 sources) Derangement of left knee; Translations: [Unspecified internal derangement of knee] Chronic Malaise and fatigue (6 sources) Fatigue; Translations: [Chronic fatigue, unspecified] Chronic Osteoporosis (13 sources) Osteoporosis; Translations: [Age-related osteoporosis without current pathological fracture] Onset: 12-02-2024 Chronic Other nervous system disorders (4 sources) Chronic pain; Translations: [Other chronic pain] Chronic Other nervous system disorders (1 source) Other chronic pain Chronic Other non-traumatic joint disorders (6 sources) Pain in left knee; Translations: [Left knee pain, unspecified chronicity] Episodic Other screening for suspected conditions (not mental disorders or infectious disease) (15 sources) Encounter for screening for cardiovascular disorders; Translations: [Encounter for screening for diabetes mellitus] Onset: 05-22-2021 Resolved: 05-22-2021 Episodic Other skin disorders (1 source) Rash and other nonspecific skin eruption; Translations: [Rash and other nonspecific skin eruption] 11-28-2024 Episodic Other upper respiratory infections (5 sources) Acute maxillary sinusitis, unspecified; Translations: [Acute upper respiratory infection, unspecified] Episodic Residual codes; unclassified (1 source) Family history of malignant neoplasm of breast; Translations: [FAMILY HX MALIG NEOPLASM OF BREAST] Onset: 12-29-2021 Episodic Residual codes; unclassified (7 sources) Family history of cancer of colon; Translations: [Family history of malignant neoplasm of digestive organs] 11-09-2020 Episodic Residual codes; unclassified (4 sources) Postmenopausal state; Translations: [Asymptomatic menopausal state] 02-09-2024 Episodic Past or Other Problems Problem Classification Problem Date Documented Da te Episodic/Chronic Other connective tissue disease (1 source) Muscle weakness (generalized); Translations: [Muscle weakness (generalized)] Onset: 05-02-2024 Episodic Results Test Name Value Interpretation Reference Range Facility MM TOMOSYNTHESIS SCREENING B Ion 01-04-2025 [place] [address] Mammography Report Signed Patient: FRANCK AGUILAR MR#: [id number] : 1965 Acct:[id number] Age/Sex: 59 / F ADM Date: 01/04/25 Loc: MAMMO Attending Dr: Keisha Mehta D.O. Ordering Physician: Keisha Mehta D.O. Results: Date of Service: 01/04/25 Follow Up: Procedure(s): MM tomosynthesis screening BI Accession Number(s): [id number] cc: DUKE SUNG; Keisha Mehta D.O. Patient Name: FRANCK AGUILAR MR#: [id number] : 1965 Exam Date: 01/04/2025 Ordering Doctor: DR KEISHA MEHTA . RADIOLOGY REPORT PROCEDURE: MM TOMOSYNTHESIS SCREENING BI COMPARISON: MM TOMOSYNTHESIS SCREENING BI, 01/01/2024. MM TOMOSYNTHESIS SCREENING BI, 12/29/2022. MG MAMM SCREEN 3D ZEV CAD, 12/25/2021. MAMMO POST BIOPSY UNILATERAL LEFT, 09/27/2008. INDICATIONS: Screening Calculator Name NCI Breast Cancer Risk Assessment Tool 5 Year Breast Cancer Risk 3.90% Lifetime Breast Cancer Risk 18.50% Personal Breast Cancer No Personal Ovarian Cancer No Treatments None Family Cancers Mother with breast cancer at age 55. LOCATION: The [facility] [place] BREAST COMPOSITION: The breasts are heterogeneously dense, which may obscure small masses. FINDINGS: RIGHT BREAST: No significant suspicious finding. LEFT BREAST: No significant suspicious finding. DIAGNOSTIC CATEGORY 1--NEGATIVE. RECOMMENDATIONS: ROUTINE MAMMOGRAM AND CLINICAL EVALUATION IN 12 MONTHS. PLEASE NOTE: A NORMAL MAMMOGRAM DOES NOT EXCLUDE THE POSSIBILITY OF BREAST CANCER. A CLINICALLY SUSPICIOUS PALPABLE LUMP SHOULD BE BIOPSIED. Dictated by: Jasson Bell MD on 01/04/2025 at 14:13 Approved by: Jasson Bell MD on 01/04/2025 at 14:15 Dictated By: Jasson Bell M.D. Signed By: 01/04/25 1416 DD/ 1415 TD/TT: Slip Cover Operator: [facility] Radiology, Radiologist, MD - 01/04/[address] [address] Mammography Report Signed Patient: FRANCK AGUILAR MR#: [id number] : 1965 Acct:[id number] Age/Sex: 59 / F ADM Date: 01/04/25 Loc: MAMMO Attending Dr: Keisha Mehta D.O. Ordering Physician: Keisha Mehta D.O. Results: Date of Service: 01/04/25 Follow Up: Procedure(s): MM tomosynthesis screening BI Accession Number(s): [id number] cc: DUKE SUNG; Keisha Mehta D.O. Patient Name: FRANCK AGUILAR MR#: [id number] : 1965 Exam Date: 01/04/2025 Ordering Doctor: DR KEISHA MEHTA . RADIOLOGY REPORT PROCEDURE: MM TOMOSYNTHESIS SCREENING BI COMPARISON: MM TOMOSYNTHESIS SCREENING BI, 01/01/2024. MM TOMOSYNTHESIS SCREENING BI, 12/29/2022. MG MAMM SCREEN 3D ZEV CAD, 12/25/2021. MAMMO POST BIOPSY UNILATERAL LEFT, 09/27/2008. INDICATIONS: Screening Calculator Name NCI Breast Cancer Risk Assessment Tool 5 Year Breast Cancer Risk 3.90% Lifetime Breast Cancer Risk 18.50% Personal Breast Cancer No Personal Ovarian Cancer No Treatments None Family Cancers Mother with breast cancer at age 55. LOCATION: The [facility] [place] BREAST COMPOSITION: The breasts are heterogeneously dense, which may obscure small masses. FINDINGS: RIGHT BREAST: No significant suspicious finding. LEFT BREAST: No significant suspicious finding. DIAGNOSTIC CATEGORY 1--NEGATIVE. RECOMMENDATIONS: ROUTINE MAMMOGRAM AND CLINICAL EVALUATION IN 12 MONTHS. PLEASE NOTE: A NORMAL MAMMOGRAM DOES NOT EXCLUDE THE POSSIBILITY OF BREAST CANCER. A CLINICALLY SUSPICIOUS PALPABLE LUMP SHOULD BE BIOPSIED. Dictated by: Jasson Bell MD on 01/04/2025 at 14:13 Approved by: Jasson Bell MD on 01/04/2025 at 14:15 Dictated By: Jasson Bell M.D. Signed By: 01/04/25 141 DD/ 14 TD/TT: Slip Cover Operator: [facility] Radiology Study observation (narrative) [facility] MM TOMOSYNTHESIS SCREENING B IOrdered By: Radiologist Radiology on 01-04-2025 [facility] Work Phone: Complete Blood Count Auto Di ffon 12-02-2024 Basophils (Bld) [#/Vol] 0.1 10*3/uL Normal 0.0-0.2 The [facility] Comment on above: Result Comment: PERF ORMED BY: [place] [address] PATHOLOGIST CLINICAL REGISTERED NURSE KAIDEN SUMMERS M.D. Performed By: #### V [id number], CMP, CBC, LIPID, TSH3 wRFLX #### [address] Basophils/100 WBC (Bld) 1.0 % Normal . [facility] Comment on above: Performed By: #### V [id number], CMP, CBC, LIPID, TSH3 wRFLX #### [place] [address] [place] Eosinophils (Bld) [#/Vol] 0.1 10*3/uL Normal 0.0-0.45 The [facility] Comment on above: Performed By: #### V [id number], CMP, CBC, LIPID, TSH3 wRFLX #### [address] Eosinophils/100 WBC (Bld) 1.7 % Normal . [facility] Comment on above: Performed By: #### V [id number], CMP, CBC, LIPID, TSH3 wRFLX #### [address] Erythrocyte distribution width (RBC) [Ratio] 13.3 % Normal 11.9-15.3 The [facility] Comment on above: Performed By: #### V [id number], CMP, CBC, LIPID, TSH3 wRFLX #### [address] Hematocrit (Bld) [Volume fraction] 43.0 % Normal 34.0-46.4 The [facility] Comment on above: Performed By: #### V [id number], CMP, CBC, LIPID, TSH3 wRFLX #### [address] Hemoglobin (Bld) [Mass/Vol] 14.7 g/dL Normal 11.8-15.4 [facility] Comment on above: Performed By: #### V [id number], CMP, CBC, LIPID, TSH3 wRFLX #### [address] Lymphocytes (Bld) [#/Vol] 1.8 10*3/uL Normal 1.00-4.8 [facility] Comment on above: Performed By: #### V [id number], CMP, CBC, LIPID, TSH3 wRFLX #### [address] Lymphocytes/100 WBC (Bld) 26.0 % Normal . [facility] Comment on above: Performed By: #### V [id number], CMP, CBC, LIPID, TSH3 wRFLX #### [address] MCH (RBC) [Entitic mass] 29.9 pg Normal 24.7-34.3 [facility] Comment on above: Performed By: #### V [id number], CMP, CBC, LIPID, TSH3 wRFLX #### [address] MCV (RBC) [Entitic vol] 87.5 fL Normal 80-100 T he [facility] Comment on above: Performed By: #### V [id number], CMP, CBC, LIPID, TSH3 wRFLX #### [address] Mean Corpuscular HGB Conc 34.2 g/dL Normal 32.0-35.0 [facility] Comment on above: Performed By: #### V [id number], CMP, CBC, LIPID, TSH3 wRFLX #### [address] Monocytes (Bld) [#/Vol] 0.5 10*3/uL Normal 0.0-0.8 The [facility] Comment on above: Performed By: #### V [id number], CMP, CBC, LIPID, TSH3 wRFLX #### [address] Monocytes/100 WBC (Bld) 7.7 % Normal . T he [facility] Comment on above: Performed By: #### V [id number], CMP, CBC, LIPID, TSH3 wRFLX #### [address] Neutrophils (Bld) [#/Vol] 4.5 10*3/uL Normal 1.8-7.7 The [facility] Comment on above: Performed By: #### V [id number], CMP, CBC, LIPID, TSH3 wRFLX #### [address] Neutrophils/100 WBC (Bld) 63.6 % Normal . [facility] Comment on above: Performed By: #### V [id number], CMP, CBC, LIPID, TSH3 wRFLX #### [address] NRBC% 0.1 /100{WBC} Normal 0-0.5 The [facility] Comment on above: Performed By: #### V [id number], CMP, CBC, LIPID, TSH3 wRFLX #### [address] Platelet mean volume (Bld) [Entitic vol] 8.0 fL Normal 6.3-10.7 The [facility] Comment on above: Performed By: #### V [id number], CMP, CBC, LIPID, TSH3 wRFLX #### [place] [address] [place] Platelets (Bld) [#/Vol] 342 10*3/uL Normal 150-450 The [facility] Comment on above: Performed By: #### V [id number], CMP, CBC, LIPID, TSH3 wRFLX #### [address] RBC (Bld) [#/Vol] 4.91 10*6/uL Normal 3.60-5.00 The [facility] Comment on above: Performed By: #### V [id number], CMP, CBC, LIPID, TSH3 wRFLX #### [address] WBC (Bld) [#/Vol] 7.1 10*3/uL Normal 3.8-11.6 The [facility] Comment on above: Performed By: #### V [id number], CMP, CBC, LIPID, TSH3 wRFLX #### [address] Comprehensive Metabolic Pane jose 12-02-2024 Albumin [Mass/Vol] 4.9 g/dL Normal 3.5-5.7 The [facility] Comment on above: Order Comment: FASTI [email or web address] Performed By: #### V [id number], CMP, CBC, LIPID, TSH3 wRFLX #### [address] Albumin/Globulin [Mass ratio] 2.1 {ratio} Normal The [facility] Comment on above: Order Comment: FASTI [email or web address] Performed By: #### V [id number], CMP, CBC, LIPID, TSH3 wRFLX #### [address] ALP [Catalytic activity/Vol] 51 U/L Normal 34-104 The [facility] Comment on above: Order Comment: FASTI [email or web address] Performed By: #### V [id number], CMP, CBC, LIPID, TSH3 wRFLX #### [address] ALT [Catalytic activity/Vol] 15 U/L Normal 7-52 The [facility] Comment on above: Order Comment: FASTI [email or web address] Performed By: #### V [id number], CMP, CBC, LIPID, TSH3 wRFLX #### [facility] [address] Anion gap [Moles/Vol] 11.5 mmol/L Normal 6.0-15.0 Th e [facility] Comment on above: Order Comment: FASTI [email or web address] Performed By: #### V [id number], CMP, CBC, LIPID, TSH3 wRFLX #### [address] AST [Catalytic activity/Vol] 17 U/L Normal 13-39 The [facility] Comment on above: Order Comment: FASTI [email or web address] Performed By: #### V [id number], CMP, CBC, LIPID, TSH3 wRFLX #### [address] Bilirubin [Mass/Vol] 1.5 mg/dL High 0.3-1.0 The [facility] Comment on above: Order Comment: FASTI [email or web address] Result Comment: Samp les from patients who have taken Naproxen have shown spurious elevation in Total Bilirubin levels. A metabolite of Naproxen, O-desmethylnaproxen, has been shown to interfere with the Jendrassik-Grof method for measuring Total Bilirubin. Performed By: #### V [id number], CMP, CBC, LIPID, TSH3 wRFLX #### [address] Calcium [Mass/Vol] 9.7 mg/dL Normal 8.6-10.3 The [facility] Comment on above: Order Comment: FASTI [email or web address] Performed By: #### V [id number], CMP, CBC, LIPID, TSH3 wRFLX #### [place] [address] [place] Chloride [Moles/Vol] 106 mmol/L Normal 98-107 The [facility] Comment on above: Order Comment: FASTI [email or web address] Performed By: #### V [id number], CMP, CBC, LIPID, TSH3 wRFLX #### [place] [address] [place] CO2 [Moles/Vol] 26.7 mmol/L Normal 21.0-31.0 The [facility] Comment on above: Order Comment: FASTI [email or web address] Performed By: #### V [id number], CMP, CBC, LIPID, TSH3 wRFLX #### [facility] [address] Creatinine [Mass/Vol] 0.69 mg/dL Normal 0.60-1.20 The [facility] Comment on above: Order Comment: FASTI [email or web address] Performed By: #### V [id number], CMP, CBC, LIPID, TSH3 wRFLX #### [place] [address] [place] GFR/1.73 sq M.predicted MDRD (S/P/Bld) [Vol rate/Area] mL/min/{1.73_m2} Normal The [facility] Comment on above: Order Comment: FASTI [email or web address] Performed By: #### V [id number], CMP, CBC, LIPID, TSH3 wRFLX #### [address] Globulin (S) [Mass/Vol] 2.3 g/dL Normal T he [facility] Comment on above: Order Comment: FASTI [email or web address] Performed By: #### V [id number], CMP, CBC, LIPID, TSH3 wRFLX #### [address] Glucose [Mass/Vol] 99 mg/dL Normal 70-100 The [facility] Comment on above: Order Comment: FASTI [email or web address] Result Comment: [place] Glucose Reference Range is dependent on time and content of last meal. Glucose of more than 200 mg/dL in a nonstressed, ambulatory subject supports the diagnosis of Diabetes Mellitus. ADA recommended reference range Performed By: #### V [id number], CMP, CBC, LIPID, TSH3 wRFLX #### [address] Potassium [Moles/Vol] 4.2 mmol/L Normal 3.5-5.1 The [facility] Comment on above: Order Comment: FASTI [email or web address] Performed By: #### V [id number], CMP, CBC, LIPID, TSH3 wRFLX #### [address] Protein [Mass/Vol] 7.2 g/dL Normal 6.4-8.9 The [facility] Comment on above: Order Comment: FASTI [email or web address] Performed By: #### V [id number], CMP, CBC, LIPID, TSH3 wRFLX #### [address] Sodium [Moles/Vol] 140 mmol/L Normal 136-145 The [facility] Comment on above: Order Comment: FASTI [email or web address] Performed By: #### V [id number], CMP, CBC, LIPID, TSH3 wRFLX #### [address] Urea nitrogen [Mass/Vol] 22 mg/dL Normal 7-25 The [facility] Comment on above: Order Comment: FASTI [email or web address].JKW Performed By: #### V [id number], CMP, CBC, LIPID, TSH3 wRFLX #### [address] Lipid Panelon 12-02-2024 Cholesterol [Mass/Vol] 212 mg/dL High 140-200 [facility] Comment on above: Order Comment: FASTI [email or web address] Result Comment: Chol less than 200 mg/dl low risk Chol 201-239 mg/dl borderline risk Chol 240 mg/dl and greater high risk Performed By: #### V [id number], CMP, CBC, LIPID, TSH3 wRFLX #### [place] [id number] [facility] Cholesterol in HDL [Mass/Vol] 87 mg/dL Normal 23-92 The [facility] Comment on above: Order Comment: FASTI [email or web address].JKW Result Comment: HDL CHOL ATP-III CLASSIFICATION Cardiovascular Risk HDL > or equal to 60 mg/dL LOW HDL < 40 mg/dL HIGH Performed By: #### V [id number], CMP, CBC, LIPID, TSH3 wRFLX #### [facility] [address] Cholesterol.total/Choles terol in HDL [Mass ratio] 2.4 {ratio} Normal <5.0 The [facility] Comment on above: Order Comment: FASTFelix [email or web address] Performed By: #### V [id number], CMP, CBC, LIPID, TSH3 wRFLX #### [facility] [address] LDL Cholesterol,Calculated 113 mg/dL High 0-100 The [facility] Comment on above: Order Comment: FASTI [email or web address] Result Comment: LDL ATP III CLASSIFICATION LDL less than 100 mg/dL Optimal LDL 100-129 mg/dL Near or above optimal LDL 130-159 mg/dL Borderline high LDL 160-189 mg/dL High LDL greater than 189 mg/dL Very high Performed By: #### V [id number], CMP, CBC, LIPID, TSH3 wRFLX #### [address] Triglyceride w/Reflex 62 mg/dL Normal 0-149 The [facility] Comment on above: Order Comment: FASTI [email or web address] Result Comment: TRIG ATP III CLASSIFICATION TRIG less than 150 mg/dL Normal TRIG 150-199 mg/dL Borderline high TRIG 200-500 mg/dL High TRIG greater than 500 mg/dL Very high Standard traceable to the Center for Disease Conrtrol and Prevention (CDC) test method. Performed By: #### V [id number], CMP, CBC, LIPID, TSH3 wRFLX #### [address] VLDL CHOLESTEROL 12 mg/dL Normal The [facility] Comment on above: Order Comment: FASTI [email or web address] Performed By: #### V [id number], CMP, CBC, LIPID, TSH3 wRFLX #### [address] Thyroid Stim Hormone w/Rflxo n 12-02-2024 Thyroid Stim Hormone w/Rflx 2.14 u[iU]/mL Normal 0.45-5.33 The [facility] Comment on above: Order Comment: FASTI [email or web address].JKW Performed By: #### V [id number], CMP, CBC, LIPID, TSH3 wRFLX #### [facility] [address] [place] [id number] [facility] Vitamin D 25 Hydroxy Totalon 12-02-2024 Vitamin D 25 Hydroxy Total 71.3 ng/mL Normal 30-100 The [facility] Comment on above: Order Comment: FOUZIA [email or web address] Result Comment: LEANDRO MIN D STATUS 25(OH)VITAMIN D RANGE (ng/mL) Deficient <20 Insufficient 20 to <30 Sufficient 30 to 100 Reference: Ignacio MF,Ying SANCHEZ, Shante ESPINOZA, et al. Evaluation,treatment, and prevention of vitamin D deficiency; an Endocrine Society clinical practice guideline. JCEM. 2010; 96(7):1911-30. PERFORMED BY: [place] [address] PATHOLOGIST CLINICAL REGISTERED NURSE KAIDEN SUMMERS M.D. Performed By: #### V [id number], CMP, CBC, LIPID, TSH3 wRFLX #### [facility] [address] [place] [id number] [facility] IGP,APTIMA HPV,AGE GDLNon AGE GDLN ACOG TESTING Note . [facility] Comment on above: TESTS RESULT FLAG UN ITS REF RANGE LAB Clinician Provided Cytology Information Source.............Cervix;Endocervix No. of containers..01 ThinPrep Vial Age Algo ACOG Jeanne... 30-65 01 FLAG LEGEND: L-Low Normal,H-High Normal,LL-Alert Low,HH-Alert High <-Panic Low,>-Panic High,A-Abnormal,AA-Critical Abnormal Performed at: 01 =[address] [place] [address] Winter Parks MD, HPV APTIMA Negative Negative [facility] Comment on above: This nucleic acid am plification test detects fourteen high- risk HPV types (16,18,31,33,35,39,45,51,52,56,58,59,66,68) without differentiation. Performed at: =[address], [place] [id number] Allergy Physician: Winter Parks MD, Phone: [phone] Performed at: [facility] [address] [place], [place] [id number] Allergy Physician: Star Ortiz MD, Phone: [phone] IGP, APTIMA HPV, RFX 16/18,45 Note . [facility] Comment on above: TESTS RESULT FLAG UN ITS REF RANGE LAB DIAGNOSIS: 02 NEGATIVE FOR INTRAEPITHELIAL LESION OR MALIGNANCY. Specimen adequacy: 02 Satisfactory for evaluation. Endocervical and/or squamous metaplastic cells (endocervical component) are present. Performed by: 02 Caio Arias, Gun Perforator Loader (ASCP) . 02 Note: Note 03 The Pap smear is a screening test designed to aid in the detection of premalignant and malignant conditions of the uterine cervix. It is not a diagnostic procedure and should not be used as the sole means of detecting cervical cancer. Both false-positive and false-negative reports do occur. Test Methodology: Note 03 This liquid based ThinPrep(R) pap test was screened with the use of an image guided system. HPV Genotype Reflex Note 02 Criteria not met, HPV Genotype not performed. FLAG LEGEND: L-Low Normal,H-High Normal,LL-Alert Low,HH-Alert High <-Panic Low,>-Panic High,A-Abnormal,AA-Critical Abnormal Performed at: 02 [facility] [address] [place] [address] Star Ortiz MD, 03 WB [facility] [address] [address] Winter Parks MD, BRUSH-SPATULA CERVIX ENDOCERVIX [facility] Cytology Cervical or vaginal smear or scraping studyOrdered By: Esme Ocampo on 02-09-2024 [facility] Basophils Auto (Bld) [#/Vol] Ordered By: Rio Walton on 06-09-2023 Basophils (Bld) [#/Vol] 0.1 10*3/uL 0.0-0.2 [facility] Basophils/100 WBC Auto (Bld) Ordered By: Rio Walton on 06-09-2023 Basophils/100 WBC (Bld) 0.7 % . [facility] Eosinophils Auto (Bld) [#/Vo l]Ordered By: Rio Walton on 06-09-2023 Eosinophils (Bld) [#/Vol] 0.2 10*3/uL 0.0-0.45 [facility] Eosinophils/100 WBC Auto (Bl d)Ordered By: Rio Walton on 06-09-2023 Eosinophils/100 WBC (Bld) 3.4 % . [facility] Erythrocyte distribution wid th Auto (RBC) [Ratio]Ordered By: Rio Walton on 06-09-2023 Erythrocyte distribution width (RBC) [Ratio] 12.8 % 11.9-15.3 [facility] Hematocrit Auto (Bld) [Volum e fraction]Ordered By: Rio Walton on 06-09-2023 Hematocrit (Bld) [Volume fraction] 38.8 % 34.0-46.4 [facility] Hemoglobin [Mass/volume] in BloodOrdered By: Rio Walton on 06-09-2023 Hemoglobin (Bld) [Mass/Vol] 13.2 g/dL 11.8-15.4 [facility] Leukocytes [#/volume] correc mikayla for nucleated erythrocytes in Blood by Automated counOrdered By: Rio Walton on 06-09-2023 WBC corrected for nucl RBC Auto (Bld) [#/Vol] 7.0 10*3/uL 3.8-11.6 [facility] Lymphocytes Auto (Bld) [#/Vo l]Ordered By: Rio Walton on 06-09-2023 Lymphocytes (Bld) [#/Vol] 2.2 10*3/uL 1.00-4.8 [facility] Lymphocytes/100 WBC Auto (Bl d)Ordered By: Rio Walton on 06-09-2023 Lymphocytes/100 WBC (Bld) 31.2 % . [facility] MCH Auto (RBC) [Entitic mass ]Ordered By: Rio Walton on 06-09-2023 MCH (RBC) [Entitic mass] 30.2 pg 24.7-34.3 [facility] MCHC Auto (RBC) [Mass/Vol]Or dered By: Rio Walton on 06-09-2023 MCHC (RBC) [Mass/Vol] 34.0 g/dL 32.0-35.0 [facility] MCV Auto (RBC) [Entitic vol] Ordered By: Rio Walton on 06-09-2023 MCV (RBC) [Entitic vol] 88.8 fL 80-100 [facility] Monocytes Auto (Bld) [#/Vol] Ordered By: Rio Walton on 06-09-2023 Monocytes (Bld) [#/Vol] 0.6 10*3/uL 0.0-0.8 [facility] Monocytes/100 WBC Auto (Bld) Ordered By: Rio Walton on 06-09-2023 Monocytes/100 WBC (Bld) 9.0 % . [facility] Neutrophils Auto (Bld) [#/Vo l]Ordered By: Rio Walton on 06-09-2023 Neutrophils (Bld) [#/Vol] 3.9 10*3/uL 1.8-7.7 [facility] Neutrophils/100 WBC Auto (Bl d)Ordered By: Rio Walton on 06-09-2023 Neutrophils/100 WBC (Bld) 55.7 % . [facility] Nucleated erythrocytes [Pres ence] in Blood by Automated countOrdered By: Rio Walton on 06-09-2023 Nucleated RBC Auto Ql (Bld) 0.1 /100{WBC} 0-0.5 [facility] Platelet mean volume Auto (B ld) [Entitic vol]Ordered By: Rio Walton on 06-09-2023 Platelet mean volume (Bld) [Entitic vol] 7.5 fL 6.3-10.7 [facility] Platelets Auto (Bld) [#/Vol] Ordered By: Rio Walton on 06-09-2023 Platelets (Bld) [#/Vol] 325 10*3/uL 150-450 [facility] RBC Auto (Bld) [#/Vol]Ordere d By: Rio Walton on 06-09-2023 RBC (Bld) [#/Vol] 4.37 10*6/uL 3.60-5.00 [facility] WBC Auto (Bld) [#/Vol]Ordere d By: Rio Walton on 06-09-2023 WBC (Bld) [#/Vol] 7.0 10*3/uL 3.8-11.6 [facility] Parathyrin.intact [Mass/volu me] in Serum or PlasmaOrdered By: Milagros Camp on 05-13-2023 Parathyrin.intact [Mass/Vol] 20.5 pg/mL [facility] Alanine aminotransferase [En zymatic activity/volume] in Serum or PlasmaOrdered By: Duke Sung on 04-10-2023 ALT [Catalytic activity/Vol] 18 U/L [facility] Albumin [Mass/volume] in Ser um or Plasma by Bromocresol green (BCG) dye binding methoOrdered By: Duke Sung on 04-10-2023 Albumin BCG dye [Mass/Vol] 4.6 g/dL 3.5-5.7 [facility] Alkaline phosphatase [Enzyma tic activity/volume] in Serum or PlasmaOrdered By: Duke Sung on 04-10-2023 ALP [Catalytic activity/Vol] 61 U/L 34-104 [facility] Aspartate aminotransferase [ Enzymatic activity/volume] in Serum or PlasmaOrdered By: Duke Sung on 04-10-2023 AST [Catalytic activity/Vol] 16 U/L 13-39 [facility] Bilirubin.total [Mass/volume ] in Serum or PlasmaOrdered By: Duke Sung on 04-10-2023 Bilirubin [Mass/Vol] 1.0 mg/dL 0.3-1.0 [facility] Calcium [Mass/volume] in Ser um or PlasmaOrdered By: Duke Sung on 04-10-2023 Calcium [Mass/Vol] 10.0 mg/dL 8.6-10.3 [facility] Carbon dioxide, total [Moles /volume] in Serum or PlasmaOrdered By: Duke Sung on 04-10-2023 CO2 [Moles/Vol] 30.3 mmol/L 21.0-31.0 [facility] Chloride [Moles/volume] in S jamee or PlasmaOrdered By: Duke Sung on 04-10-2023 Chloride [Moles/Vol] 105 mmol/L 98-107 [facility] Cholesterol [Mass/volume] in Serum or PlasmaOrdered By: Duke Sung on 04-10-2023 Cholesterol [Mass/Vol] 217 mg/dL 140-200 [facility] Comment on above: Chol less than 200 m g/dl low riskChol 201-239 mg/dl borderline riskChol 240 mg/dl and greater high risk Cholesterol in LDL Calc [Mas s/Vol]Ordered By: Duke Sung on 04-10-2023 Cholesterol in LDL [Mass/Vol] 118 mg/dL 0-100 [facility] Comment on above: LDL ATP III CLASSIFI CATIONLDL less than 100 mg/dL OptimalLDL 100-129 mg/dL Near or above optimalLDL 130-159 mg/dL Borderline highLDL 160-189 mg/dL HighLDL greater than 189 mg/dL Very high Cholesterol in VLDL Calc [Ma ss/Vol]Ordered By: Duke Sung on 04-10-2023 Cholesterol in VLDL [Mass/Vol] 15 mg/dL [facility] Creatinine [Mass/volume] in Serum or PlasmaOrdered By: Duke Sung on 04-10-2023 Creatinine [Mass/Vol] 0.74 mg/dL 0.60-1.20 [facility] Erythrocyte distribution wid th Auto (RBC) [Ratio]Ordered By: Duke Sung on 04-10-2023 Erythrocyte distribution width (RBC) [Ratio] 13.2 % 11.9-15.3 [facility] Globulin Calc (S) [Mass/Vol] Ordered By: Duke Sung on 04-10-2023 Globulin (S) [Mass/Vol] 2.2 g/dL [facility] Glucose [Mass/volume] in Ser um or PlasmaOrdered By: Duke Sung on 04-10-2023 Glucose [Mass/Vol] 97 mg/dL 70-100 [facility] Comment on above: ADA recommended refe rence rangeRandom Glucose Reference Range is dependent on time and content of last meal. Glucose of more than 200 mg/dL in a nonstressed, ambulatory subject supports the diagnosis of Diabetes Mellitus. Hematocrit Auto (Bld) [Volum e fraction]Ordered By: Duke Sung on 04-10-2023 Hematocrit (Bld) [Volume fraction] 41.2 % 34.0-46.4 [facility] Hemoglobin [Mass/volume] in BloodOrdered By: Duke Sung on 04-10-2023 Hemoglobin (Bld) [Mass/Vol] 13.9 g/dL 11.8-15.4 [facility] Leukocytes [#/volume] correc mikayla for nucleated erythrocytes in Blood by Automated counOrdered By: Duke Sung on 04-10-2023 WBC corrected for nucl RBC Auto (Bld) [#/Vol] 9.1 10*3/uL 3.8-11.6 [facility] MCH Auto (RBC) [Entitic mass ]Ordered By: Duke Sung on 04-10-2023 MCH (RBC) [Entitic mass] 29.9 pg 24.7-34.3 [facility] MCHC Auto (RBC) [Mass/Vol]Or dered By: Duke Sung on 04-10-2023 MCHC (RBC) [Mass/Vol] 33.7 g/dL 32.0-35.0 [facility] MCV Auto (RBC) [Entitic vol] Ordered By: Duke Sung on 04-10-2023 MCV (RBC) [Entitic vol] 88.7 fL 80-100 [facility] No Panel InformationOrdered By: Duke Sung on 04-10-2023 Estimated GFR (CKD-EPI) > 60.0 mL/Min [facility] Creatinine Clearance (Chem N/A [facility] Platelet mean volume Auto (B ld) [Entitic vol]Ordered By: Duke Sung on 04-10-2023 Platelet mean volume (Bld) [Entitic vol] 8.0 fL 6.3-10.7 [facility] Platelets Auto (Bld) [#/Vol] Ordered By: Duke Sung on 04-10-2023 Platelets (Bld) [#/Vol] 307 10*3/uL 150-450 [facility] Potassium [Moles/volume] in Serum or PlasmaOrdered By: Duke Sung on 04-10-2023 Potassium [Moles/Vol] 4.3 mmol/L 3.5-5.1 [facility] Protein [Mass/volume] in Ser um or PlasmaOrdered By: Duke Sung on 04-10-2023 Protein [Mass/Vol] 6.8 g/dL 6.4-8.9 [facility] RBC Auto (Bld) [#/Vol]Ordere d By: Duke Sung on 04-10-2023 RBC (Bld) [#/Vol] 4.64 10*6/uL 3.60-5.00 [facility] Serum or plasma albumin/glob ulin mass ratioOrdered By: Duke Sung on 04-10-2023 Albumin/Globulin [Mass ratio] 2.1 {ratio} [facility] Serum or plasma anion gap de terminationOrdered By: Duke Sung on 04-10-2023 Anion gap [Moles/Vol] 10.0 mmol/L 6.0-15.0 [facility] Serum or plasma high density lipoprotein (HDL) cholesterol measurementOrdered By: Duke Sung on 04-10-2023 Cholesterol in HDL [Mass/Vol] 83 mg/dL 23- [facility] Comment on above: HDL CHOL ATP-III CLA SSIFICATION Cardiovascular RiskHDL > or equal to 60 mg/dL LOWHDL < 40 mg/dL HIGH Serum or plasma total choles terol/high density lipoprotein (HDL) cholesterol mass ratOrdered By: Duke uSng on 04-10-2023 Cholesterol.total/Choles terol in HDL [Mass ratio] 2.6 {ratio} <5.0 [facility] Sodium [Moles/volume] in Ser um or PlasmaOrdered By: Duke Sung on 04-10-2023 Sodium [Moles/Vol] 141 mmol/L 136-145 [facility] Thyrotropin [Units/volume] i n Serum or PlasmaOrdered By: Duke Sung on 04-10-2023 TSH Qn 2.94 m[IU]/L 0.45-5.33 [facility] Triglyceride [Mass/volume] i n Serum or PlasmaOrdered By: Duke Sung on 04-10-2023 Triglyceride [Mass/Vol] 79 mg/dL 0-149 [facility] Comment on above: TRIG ATP III CLASSIF ICATIONTRIG less than 150 mg/dL NormalTRIG 150-199 mg/dL Borderline highTRIG 200-500 mg/dL High TRIG greater than 500 mg/dL Very highStandard traceable to the Center for Disease Conrtrol and Prevention (CDC) test method. Urea nitrogen [Mass/volume] in Serum or PlasmaOrdered By: Duke Sung on 04-10-2023 Urea nitrogen [Mass/Vol] 19 mg/dL 7-25 [facility] Vitamin D+Metabolites [Mass/ volume] in Serum or PlasmaOrdered By: Duke Sung on 04-10-2023 Vitamin D+Metabolites [Mass/Vol] 41.9 ng/mL 30-100 [facility] Comment on above: VITAMIN D STATUS 25( [place])VITAMIN D RANGE (ng/mL) Deficient <20 Insufficient 20 to <30Sufficient 30 to 100Reference: Ignacio MF,Ying NC, Shante ESPINOZA, et al. Evaluation,treatment, and prevention of vitamin D deficiency; an Endocrine Society clinical practice guideline. JCEM. 2010; 96(5):1911-30. Basophils Auto (Bld) [#/Vol] Ordered By: Rio Walton on 04-29-2022 Basophils (Bld) [#/Vol] 0.0 10*3/uL 0.0-0.2 [facility] Basophils/100 WBC Auto (Bld) Ordered By: Rio Walton on 04-29-2022 Basophils/100 WBC (Bld) 0.7 % . [facility] Eosinophils Auto (Bld) [#/Vo l]Ordered By: Rio Walton on 04-29-2022 Eosinophils (Bld) [#/Vol] 0.1 10*3/uL 0.0-0.45 [facility] Eosinophils/100 WBC Auto (Bl d)Ordered By: Rio Walton on 04-29-2022 Eosinophils/100 WBC (Bld) 1.7 % . [facility] Erythrocyte distribution wid th Auto (RBC) [Ratio]Ordered By: Rio Walton on 04-29-2022 Erythrocyte distribution width (RBC) [Ratio] 12.9 % 11.9-15.3 [facility] Hematocrit Auto (Bld) [Volum e fraction]Ordered By: Rio Walton on 04-29-2022 Hematocrit (Bld) [Volume fraction] 42.7 % 34.0-46.4 [facility] Hemoglobin [Mass/volume] in BloodOrdered By: Rio Walton on 04-29-2022 Hemoglobin (Bld) [Mass/Vol] 14.0 g/dL 11.8-15.4 [facility] Laboratory - Hematology and Cell countsOrdered By: Rio Walton on 04-29-2022 Nucleated RBC/100 WBC (Bld) [Ratio] 0.0 % 0-0.5 [facility] Leukocytes [#/volume] in Blo od by Automated countOrdered By: Rio Walton on 04-29-2022 WBC (Bld) [#/Vol] 6.7 10*3/uL 4.5-11.0 [facility] Lymphocytes Auto (Bld) [#/Vo l]Ordered By: Rio Walton on 04-29-2022 Lymphocytes (Bld) [#/Vol] 2.0 10*3/uL 1.00-4.8 [facility] Lymphocytes/100 WBC Auto (Bl d)Ordered By: Rio Walton on 04-29-2022 Lymphocytes/100 WBC (Bld) 30.3 % . [facility] MCH Auto (RBC) [Entitic mass ]Ordered By: Rio Walton on 04-29-2022 MCH (RBC) [Entitic mass] 29.2 pg 24.7-34.3 [facility] MCHC Auto (RBC) [Mass/Vol]Or dered By: Rio Walton on 04-29-2022 MCHC (RBC) [Mass/Vol] 32.9 g/dL 32.0-35.0 [facility] MCV Auto (RBC) [Entitic vol] Ordered By: Rio Walton on 04-29-2022 MCV (RBC) [Entitic vol] 88.8 fL 80-100 [facility] Monocytes Auto (Bld) [#/Vol] Ordered By: Rio Walton on 04-29-2022 Monocytes (Bld) [#/Vol] 0.5 10*3/uL 0.0-0.8 [facility] Monocytes/100 WBC Auto (Bld) Ordered By: Rio Walton on 04-29-2022 Monocytes/100 WBC (Bld) 7.8 % . [facility] Neutrophils Auto (Bld) [#/Vo l]Ordered By: Rio Walton on 04-29-2022 Neutrophils (Bld) [#/Vol] 4.0 10*3/uL 1.8-7.7 [facility] Neutrophils/100 WBC Auto (Bl d)Ordered By: Rio Walton on 04-29-2022 Neutrophils/100 WBC (Bld) 59.5 % . [facility] Platelet mean volume Auto (B ld) [Entitic vol]Ordered By: Rio Walton on 04-29-2022 Platelet mean volume (Bld) [Entitic vol] 7.7 fL 6.3-10.7 [facility] Platelets Auto (Bld) [#/Vol] Ordered By: Rio Walton on 04-29-2022 Platelets (Bld) [#/Vol] 332 10*3/uL 150-450 [facility] RBC Auto (Bld) [#/Vol]Ordere d By: Rio Walton on 04-29-2022 RBC (Bld) [#/Vol] 4.81 10*6/uL 3.60-5.00 [facility] Established Visit (Orthopaed ic Surgery)on 01-21-2022 Established Visit (Orthopaedic Surgery) Orders Tibial plateau fracture Xray Knee 1 or 2 View; Status:Canceled; Radiology Cancel Reason: ADMINISTRATIVE CANCEL Laterality : Left Radiologist to Determine Optimal Study : Y What are the patient's signs and symptoms? : pain Provider Impressions ASSESSMENT: 1. Nondisplaced medial tibial plateau fracture of the left knee. PLAN: Franck presents for followup. She does not want to get any x-rays today. She is pain free. She is doing well. She did not get the medial unloading OA brace. At this point she is pain free. We discussed beginning to weight bear as tolerated. If she does have any increased pain, she will return to the office and we may consider further imaging and repeat x-rays, but at this point she is doing well. We will have her follow up as needed and call the office with increased pain. Chief Complaint Followup for a left medial tibial plateau fracture. FUV- Nondisplaced medial tibial plateau fracture X-Ray's today. History of Present IllnessJulie presents for followup. She is clinically doing well. She is pain free. No new issues today. Review of Systems Review of systems, past medical history, social history and family history documented and initialed on the patient information form dated January 21, 2022. This was reviewed and entered into the electronic medical record. No fevers or chills. No headache or neck pain. No nausea or vomiting. No blurry vision. No chest pain, shortness of breath, or cough. No rash. No lower extremity pitting edema. Active Problems Problems Internal derangement of left knee (717.9) (M23.92) Left knee pain, unspecified chronicity (719.46) (M25.562) Tibial plateau fracture (823.00) (S82.143A) Past Medical History Past medical history was reviewed; no change from previous visit. Allergies Medication No Known Drug Allergies Recorded By: Manuel Chavez; 11/25/2021 9:10:13 AM Current Meds Medication NameInstruction predniSONE 50 MG Oral TabletTAKE 1 TABLET DAILY WITH FOOD. Physical Exam Physical examination of the left knee shows that the skin is intact. There are no open wounds. She can flex the left knee 130 degrees with full extension at 0 degrees. Negative valgus and varus stress test. Negative Tayla test. Negative Ilan test. Patellar and quadriceps tendons are intact. No pain over the medial or lateral joint line. No pain over the proximal tibia. No pain over the medial tibial plateau. She is able to get up from a chair with no difficulty. She is walking with no antalgic gait. She has a clinically stable left knee examination. The right knee was examined for comparison. Results/Data DIAGNOSTIC STUDIES: None today. Signatures Electronically signed by : Harmony Duke, ; Jan 22 2022 10:58PM EST (Slip Cover Operator/Rec order) Electronically signed by : Samir Medeiros MD; Jan 23 2022 8:30AM EST Normal [facility] MG MAMM SCREEN 3D ZEV CADon 12-25-2021 MG MAMM SCREEN 3D ZEV CAD Patient: FRANCK AGUILAR Exam Date: 12/25/2021 : 1965 Gender:F Ordering : DR KEISHA MEHTA . Admission #: [id number] Family : Order #: [id number] CLICK HERE TO VIEW EXAM RADIOLOGY REPORT PROCEDURE: MAMMOGRAM SCREENING 3D BILATERAL CAD COMPARISON: MG MAMM SCREEN 3D ZEV CAD, 12/20/2020. MG MAMM SCREEN ZEV W CAD, 12/16/2019. INDICATIONS: Screening mammography Calculator Name NCI Breast Cancer Risk Assessment Tool 5 Year Breast Cancer Risk 3.50% Lifetime Breast Cancer Risk 19.80% Personal Breast Cancer No Personal Ovarian Cancer No Treatments None Family Cancers Mother with breast cancer at age 55. LOCATION: [facility] [place] BREAST COMPOSITION: Extremely dense, which lowers the sensitivity of mammography. FINDINGS: DIAGNOSTIC CATEGORY 2--BENIGN FINDING: RIGHT BREAST: No significant suspicious finding. Scattered benign-appearing calcifications are present. No significant change has occurred. LEFT BREAST: No significant suspicious finding. Scattered benign-appearing calcifications are present. No significant change has occurred. RECOMMENDATIONS: ROUTINE MAMMOGRAM AND CLINICAL EVALUATION IN 12 MONTHS. PLEASE NOTE: A NORMAL MAMMOGRAM DOES NOT EXCLUDE THE POSSIBILITY OF BREAST CANCER. A CLINICALLY SUSPICIOUS PALPABLE LUMP SHOULD BE BIOPSIED. Dictated by: Franc Leo M.D. on 12/26/2021 at 14:31 Approved by: Franc Leo M.D. on 12/26/2021 at 14:37 Normal [facility] [place] Established Visit (Orthopaed ic Surgery)on 12-24-2021 Established Visit (Orthopaedic Surgery) Provider Impressions ASSESSMENT: 1. Nondisplaced medial tibial plateau fracture. PLAN: Franck presents for MRI followup. It does confirm a nondisplaced medial tibial plateau fracture. She is clinically doing well but does have some mild pain. We discussed nonweightbearing and then weight bear as tolerated. We will get her measured for a medial unloading OA brace. She may get the brace once it is approved. Once she gets the knee brace, she may weight bear as tolerated. I will see her back in four weeks. We will repeat x-rays of the left knee, two views, AP and lateral views. We did nonoperative treatment with a medial unloading OA brace and weightbearing as tolerated. Chief Complaint MRI followup of the left knee. Left knee pain. Left knee internal derangement. MRI results History of Present IllnessJulitori presents for MRI followup of the left knee. She is doing a little bit better. She is still having some pain. She is here for MRI followup. Review of Systems Review of systems, past medical history, social history and family history documented and initialed on the patient information form dated December 24, 2021. This was reviewed and entered into the electronic medical record. No fevers or chills. No headache or neck pain. No nausea or vomiting. No blurry vision. No chest pain, shortness of breath, or cough. No rash. No lower extremity pitting edema. Active Problems Problems Internal derangement of left knee (717.9) (M23.92) Left knee pain, unspecified chronicity (719.46) (M25.562) Past Medical History Past medical history was reviewed; no change from previous visit. Allergies Medication No Known Drug Allergies Recorded By: Manuel Chavez; 11/25/2021 9:10:13 AM Current Meds Medication NameInstruction predniSONE 50 MG Oral TabletTAKE 1 TABLET DAILY WITH FOOD. Physical Exam Physical examination of the left knee shows that the skin is intact. There are no open wounds. There is mild swelling. No pain of the patellar tendon. No pain of the quadriceps tendon. Pain and slight instability with valgus stress test. Negative varus stress test. Patellar and quadriceps tendons are intact. Most of the pain is over the medial joint line. No pain over the lateral joint line. There is pain over the medial tibial plateau. Distal pulses are palpable. She is neurovascularly intact. The right was examined for comparison. Results/Data DIAGNOSTIC STUDIES: X-rays were reviewed. Signatures Electronically signed by : Harmony Duke, ; Dec 26 2021 9:13AM EST (Slip Cover Operator/Rec order) Electronically signed by : Samir Medeiros MD; Dec 26 2021 9:17AM EST Normal [facility] Initial Visit (Orthopaedic Surgery) Diagnoses/Problems Assessed Left knee pain, unspecified chronicity (719.46) (M25.562) Internal derangement of left knee (717.9) (M23.92) Orders Internal derangement of left knee Start: predniSONE 50 MG Oral Tablet; TAKE 1 TABLET DAILY WITH FOOD MRI Knee without Contrast; Status:Need Information - Financial Authorization; Requested for:25Nov2021; Laterality : Left Radiologist to Determine Optimal Study : Y Does the patient have a Cochlear Implant, Pacemaker, Defibrilator, Pacing Wire, Brain Aneurysm Clip, Implanted Nerve or Bone Graft Simulator, Implanted Breast Tissue Application Support, Glucose Monitor, or Neulasta Device? : No Is the patient or breast feeding? : No What are the patient's signs and symptoms? : Pain Left knee pain, unspecified chronicity Xray Knee Complete 4 or more View; Status:Active; Requested for:25Nov2021; Laterality : Left Radiologist to Determine Optimal Study : Y What are the patient's signs and symptoms? : Pain Provider Impressions ASSESSMENT: 1. Left knee pain. 2. Left knee internal derangement. PLAN: Franck presents for left knee pain with a history and physical exam consistent with left knee internal derangement. We will get her fitted for a hinged knee brace for support and stability, a short course of prednisone 50 mg one tablet daily for five days, and get her involved in physical therapy. We will request an MRI of the left knee to evaluate for left knee instability secondary to internal derangement. I will see her back after the MRI and discuss treatment options pending MRI results. Chief Complaint Here for a left knee injury. Lt Knee Pain since 11/14 after running, Progressively worsening; Hx or Lt Patellar Fx '88 Xrays Today History of Present IllnessJulie is a 56-year-old female who injured her left knee when she was doing a lot of walking and felt increased pain. It is getting progressively worse. She is here for initial evaluation. It feels like it locks up and gives out from time to time. Review of Systems Review of systems, past medical history, social history and family history documented and initialed on the patient information form dated November 25, 2021. This was reviewed and entered into the electronic medical record. No fevers or chills. No headache or neck pain. No nausea or vomiting. No blurry vision. No chest pain, shortness of breath, or cough. No rash. No lower extremity pitting edema. Active Problems Problems Left knee pain, unspecified chronicity (719.46) (M25.562) Past Medical History Past medical history was reviewed; obtained today on November 25, 2021. Allergies No Known Drug Allergies Recorded By: Manuel Chavez; 11/25/2021 9:10:13 AM Vitals Vital Signs Recorded: 25Nov2021 08:38AM Height5 ft 6 in Spiwyb630 lb BMI Svocntlbex84.27 kg/m2 BSA Calculated1.71 Physical Exam Physical examination of the left knee shows that the skin is intact. There are no open wounds. There is a trace amount of effusion. She can flex the left knee 120 degrees with full extension at 0 degrees. Negative valgus and varus stress test. Patellar and quadriceps tendons are intact. Positive Ilan test medially and laterally with slight instability. No calf tenderness. Distal pulses are palpable. She is neurovascularly intact. The right knee was examined for comparison. Results/Data DIAGNOSTIC STUDIES: X-rays were reviewed. Signatures Electronically signed by : Harmony Duke, ; Nov 27 2021 10:27AM EST (Slip Cover Operator/Rec order) Electronically signed by : Samir Medeiros MD; Nov 27 2021 6:19PM EST Normal [employer] KNEE CMPLT, 4 OR MORE VIEWSo n 11-25-2021 KNEE CMPLT, 4 OR MORE VIEWS Patient Name: FRANCK AGUILAR STUDY: KNEE; COMPLT, 4 OR MORE VIEWS; Left; 11/25/2021 8:53 am INDICATION: LT KNEE. ACCESSION NUMBER(S): [id number] ORDERING CLINICIAN: SAMIR MEDEIROS FINDINGS: Left knee x-rays four views AP, lateral, tunnel and sunrise view: No acute fractures, no dislocation. Mild degenerative changes. Electronically signed by: SAMIR MEDEIROS MD Normal [facility] Radiologyon 11-25-2021 XR Knee 4 Views Please click on the link to view the study images Normal -[facility] Work Phone: COVID-19 SOFIAon 11-07-2020 SARS-CoV+SARS-CoV-2 (COVID-19) Ag IA.rapid Ql (Resp) Negative Negative [facility] Comment on above: This is a duplicate Kayli SARS Antigen (WILLY) result to be used for statistical tracking purpose only. No Panel Informationon 11-07 SARS Antigen (LFIA) [facility] Ambulatory Clinical Summaryo n 05-25-2020 Ambulatory Clinical Summary {[id number]}CD:[id number] [facility] Formson 05-25-2020 Forms [id number] .[id number]:127 [facility] Lab Reportson 05-25-2020 Lab Reports [id number]. 00CD:127 [facility] Patient Educationon 05-25-20 20 Patient Education Kegel Exercises The goal of Kegel exercises is to isolate and exercise your pelvic floor muscles. These muscles act as a hammock that supports the rectum, vagina, small intestine, and uterus. As the muscles weaken, the hammock sags and these organs are displaced from their normal positions. Kegel exercises can strengthen your pelvic floor muscles and help you to improve bladder and bowel control, improve sexual response, and help reduce many problems and some discomfort during . Kegel exercises can be done anywhere and at any time. HOW TO PERFORM KEGEL EXERCISES 1. Locate your pelvic floor muscles. To do this, squeeze (contract ) the muscles that you use when you try to stop the flow of urine. You will feel a tightness in the vaginal area (women) and a tight lift in the rectal area (men and women). 2. When you begin, contract your pelvic muscles tight for 2?5 seconds, then relax them for 2?5 seconds. This is one set. Do 4?5 sets with a short pause in between. 3. Contract your pelvic muscles for 8?10 seconds, then relax them for 8?10 seconds. Do 4?5 sets. If you cannot contract your pelvic muscles for 8?10 seconds, try 5?7 seconds and work your way up to 8?10 seconds. Your goal is 4?5 sets of 10 contractions each day. Keep your stomach, buttocks, and legs relaxed during the exercises. Perform sets of both short and long contractions. Vary your positions. Perform these contractions 3?4 times per day. Perform sets while you are: ? ? Lying in bed in the morning. ? Standing at lunch. ? Sitting in the late afternoon. ? Lying in bed at night.? You should do 40?50 contractions per day. Do not perform more Kegel exercises per day than recommended. Overexercising can cause muscle fatigue. Continue these exercises for for at least 15?20 weeks or as directed by your caregiver. Document Released: 05/25/2013 Document Reviewed: 03/03/2013 ExitCare? Patient Information ?2013 [employer] Family Medicine Overactive Bladder, Adult The bladder has two functions that are totally opposite of the other. One is to relax and stretch out so it can store urine (fills like a balloon), and the other is to contract and squeeze down so that it can empty the urine that it has stored. Proper functioning of the bladder is a complex mixing of these two functions. The filling and emptying of the bladder can be influenced by: ? The bladder. ? The spinal cord. ? The brain. ? The nerves going to the bladder. ? Other organs that are closely related to the bladder such as prostate in males and the vagina in females. As your bladder fills with urine, nerve signals are sent from the bladder to the brain to tell you that you may need to urinate. Normal urination requires that the bladder squeeze down with sufficient strength to empty the bladder, but this also requires that the bladder squeeze down sufficiently long to finish the job. In addition the sphincter muscles, which normally keep you from leaking urine, must also relax so that the urine can pass. Coordination between the bladder muscle squeezing down and the sphincter muscles relaxing is required to make everything happen normally. With an overactive bladder sometimes the muscles of the bladder contract unexpectedly and involuntarily and this causes an urgent need to urinate. The normal response is to try to hold urine in by dunia the sphincter muscles. Sometimes the bladder contracts so strongly that the sphincter muscles cannot stop the urine from passing out and incontinence occurs. This kind of incontinence is called urge incontinence. Having an overactive bladder can be embarrassing and awkward. It can keep you from living life the way you want to. Many people think it is just something you have to put up with as you grow older or have certain health conditions. In fact, there are treatments that can help make your life easier and more pleasant. CAUSES Many things can cause an overactive bladder. Possibilities include: ? Urinary tract infection or infection of nearby tissues such as the prostate. ? Prostate enlargement. ? In women, multiple pregnancies or surgery on the uterus or urethra. ? Bladder stones, inflammation or tumors. ? Caffeine. ? Alcohol. ? Medications. For example, diuretics (drugs that help the body get rid of extra fluid) increase urine production. Some other medicines must be taken with lots of fluids. ? Muscle or nerve weakness. This might be the result of a spinal cord injury, a stroke, multiple sclerosis or Parkinson's disease. ? Diabetes can cause a high urine volume which fills the bladder so quickly that the normal urge to urinate is triggered very strongly. SYMPTOMS ? Loss of bladder control. You feel the need to urinate and cannot make your body wait. ? Sudden, strong urges to urinate. ? Urinating 8 or more times a day. ? Waking up to urinate two or more times a night. DIAGNOSIS To decide if you have overactive bladder, your healthcare provider will probably: ? Ask about symptoms you have noticed. ? Ask about your overall health. This will include questions about any medications you are taking. ? Do a physical examination. This will help determine if there are obvious blockages or other problems. ? Order some tests. These might include: ? A blood test to check for diabetes or other health issues that could be contributing to the problem. ? Urine testing. This could measure the flow of urine and the pressure on the bladder. ? A test of your neurological system (the brain, spinal cord and nerves). This is the system that senses the need to urinate. Some of these tests are called flow tests, bladder pressure tests and electrical measurements of the sphincter muscle. ? A bladder test to check whether it is emptying completely when you urinate. ? Cytoscopy. This test uses a thin tube with a tiny camera on it. It offers a look inside your urethra and bladder to see if there are problems. ? Imaging tests. You might be given a contrast dye and then asked to urinate. X-rays are taken to see how your bladder is working. TREATMENT An overactive bladder can be treated in many ways. The treatment will depend on the cause. Whether you have a mild or severe case also makes a difference. Often, treatment can be given in your healthcare provider's office or clinic. Be sure to discuss the different options with your caregiver. They include: ? Behavioral treatments. These do not involve medication or surgery: ? Bladder training. For this, you would follow a schedule to urinate at regular intervals. This helps you learn to control the urge to urinate. At first, you might be asked to wait a few minutes after feeling the urge. In time, you should be able to schedule bathroom visits an hour or more apart. ? Kegel exercises. These exercises strengthen the pelvic floor muscles, which support the bladder. By toning these muscles, they can help control urination, even if the bladder muscles are overactive. A specialist will teach you how to do these exercises correctly. They will require daily practice. ? Weight loss. If you are obese or overweight, losing weight might stop your bladder from being overactive. Talk to your healthcare provider about how many pounds you should lose. Also ask if there is a specific program or method that would work best for you. ? Diet change. This might be suggested if constipation is making your overactive bladder worse. Your healthcare provider or a supervisor feed house can explain ways to change what you eat to ease constipation. Other people might need to take in less caffeine or alcohol. Sometimes drinking fewer fluids is needed, too. ? Protection. This is not an actual treatment. But, you could wear special pads to take care of any leakage while you wait for other treatments to take effect. This will help you avoid embarrassment. ? Physical treatments. ? Electrical stimulation. Electrodes will send gentle pulses to the nerves or muscles that help control the bladder. The goal is to strengthen them. Sometimes this is done with the electrodes outside of the body. Or, they might be placed inside the body (implanted ). This treatment can take several months to have an effect. ? Medications. These are usually used along with other treatments. Several medicines are available. Some are injected into the muscles involved in urination. Others come in pill form. Medications sometimes prescribed include: ? Anticholinergics. These drugs block the signals that the nerves deliver to the bladder. This keeps it from releasing urine at the wrong time. Researchers think the drugs might help in other ways, too. ? Imipramine. This is an antidepressant. But, it relaxes bladder muscles. ? Botox. This is still experimental. Some people believe that injecting it into the bladder muscles will relax them so they work more normally. It has also been injected into the sphincter muscle when the sphincter muscle does not open properly. This is a temporary fix, however. Also, it might make matters worse, especially in older people. ? Surgery. ? A device might be implanted to help manage your nerves. It works on the nerves that signal when you need to urinate. ? Surgery is sometimes needed with electrical stimulation. If the electrodes are implanted, this is done through surgery. ? Sometimes repairs need to be made through surgery. For example, the size of the bladder can be changed. This is usually done in severe cases only. HOME CARE INSTRUCTIONS ? Take any medications your healthcare provider prescribed or suggested. Follow the directions carefully. ? Practice any lifestyle changes that are recommended. These might include: ? Drinking less fluid or drinking at different times of the day. If you need to urinate often during the night, for example, you may need to stop drinking fluids early in the evening. ? Cutting down on caffeine or alcohol. They can both make an overactive bladder worse. Caffeine is found in coffee, tea and sodas. ? Doing Kegel exercises to strengthen muscles. ? Losing weight, if that is recommended. ? Eating a healthy and balanced diet. This will help you avoid constipation. ? Keep a journal or a log. You might be asked to record how much you drink and when, and also when you feel the need to urinate. ? Learn how to care for implants or other devices, such as pessaries. SEEK MEDICAL CARE IF: ? Your overactive bladder gets worse. ? You feel increased pain or irritation when you urinate. ? You notice blood in your urine. ? You have questions about any medications or devices that your healthcare provider recommended. ? You notice blood, pus or swelling at the site of any test or treatment procedure. ? You have an oral temperature above 102? F (38.9? C). SEEK IMMEDIATE MEDICAL CARE IF: You have an oral temperature above 102? F (38.9? C), not controlled by medicine. Document Released: 04/04/2010 Document Revised: 08/30/2012 Document Reviewed: 04/04/2010 ExitCare? Patient Information ?2013 [employer] Urinary Frequency The number of times a normal person urinates depends upon how much liquid they take in and how much liquid they are losing. If the temperature is hot and there is high humidity then the person will sweat more and usually breathe a little more frequently. These factors decrease the amount of frequency of urination that would be considered normal. The amount you drink is easily determined, but the amount of fluid lost is sometimes more difficult to calculate. Fluid is lost in two ways: ? Sensible fluid loss is usually measured by the amount of urine that you get rid of. Losses of fluid can also occur with diarrhea. ? Insensible fluid loss is more difficult to measure. It is caused by evaporation. Insensible loss of fluid occurs through breathing and sweating. It usually ranges from a little less than a quart to a little more than a quart of fluid a day. In normal temperatures and activity levels the average person may urinate 4 to 7 times in a 24-hour period. Needing to urinate more often than that could indicate a problem. If one urinates 4 to 7 times in 24 hours and has large volumes each time, that could indicate a different problem from one who urinates 4 to 7 times a day and has small volumes. The time of urinating is also an important. Most urinating should be done during the waking hours. Getting up at night to urinate frequently can indicate some problems. CAUSES The bladder is the organ in your lower abdomen that holds urine. Like a balloon, it swells some as it fills up. Your nerves sense this and tell you it is time to head for the bathroom. There are a number of reasons that you might feel the need to urinate more often than usual. They include: ? Urinary tract infection. This is usually associated with other signs such as burning when you urinate. ? In men, problems with the prostate (a walnut-size gland that is located near the tube that carries urine out of your body). There are two reasons why the prostate can cause an increased frequency of urination: ? An enlarged prostate that does not let the bladder empty well. If the bladder only half empties when you urinate then it only has half the capacity to fill before you have to urinate again. ? The nerves in the bladder become more hypersensitive with an increased size of the prostate even if the bladder empties completely. ? . ? Obesity. Excess weight is more likely to cause a problem for women more than for men. ? Bladder stones or other bladder problems. ? Caffeine. ? Alcohol. ? Medications. For example, drugs that help the body get rid of extra fluid (diuretics ) increase urine production. Some other medicines must be taken with lots of fluids. ? Muscle or nerve weakness. This might be the result of a spinal cord injury, a stroke, multiple sclerosis or Parkinson's disease. ? Long-standing diabetes can decrease the sensation of the bladder. This loss of sensation makes it harder to sense the bladder needs to be emptied. Over a period of years the bladder is stretched out by constant overfilling. This weakens the bladder muscles so that the bladder does not empty well and has less capacity to fill with new urine. ? Interstitial cystitis (also called painful bladder syndrome). This condition develops because the tissues that line the insider of the bladder are inflamed (inflammation is the body's way of reacting to injury or infection). It causes pain and frequent urination. It occurs in women more often than in men. DIAGNOSIS ? To decide what might be causing your urinary frequency, your healthcare provider will probably: ? Ask about symptoms you have noticed. ? Ask about your overall health. This will include questions about any medications you are taking. ? Do a physical examination. ? Order some tests. These might include: ? A blood test to check for diabetes or other health issues that could be contributing to the problem. ? Urine testing. This could measure the flow of urine and the pressure on the bladder. ? A test of your neurological system (the brain, spinal cord and nerves). This is the system that senses the need to urinate. ? A bladder test to check whether it is emptying completely when you urinate. ? Cytoscopy. This test uses a thin tube with a tiny camera on it. It offers a look inside your urethra and bladder to see if there are problems. ? Imaging tests. You might be given a contrast dye and then asked to urinate. X-rays are taken to see how your bladder is working. TREATMENT It is important for you to be evaluated to determine if the amount or frequency that you have is unusual or abnormal. If it is found to be abnormal the cause should be determined and this can usually be found out easily. Depending upon the cause treatment could include medication, stimulation of the nerves, or surgery. There are not too many things that you can do as an individual to change your urinary frequency. It is important that you balance the amount of fluid intake needed to compensate for your activity and the temperature. Medical problems will be diagnosed and taken care of by your physician. There is no particular bladder training such as Kegel's exercises that you can do to help urinary frequency. This is an exercise this is usually done for people who have leaking of urine when they laugh cough or sneeze. HOME CARE INSTRUCTIONS ? Take any medications your healthcare provider prescribed or suggested. Follow the directions carefully. ? Practice any lifestyle changes that are recommended. These might include: ? Drinking less fluid or drinking at different times of the day. If you need to urinate often during the night, for example, you may need to stop drinking fluids early in the evening. ? Cutting down on caffeine or alcohol. They both can make you need to urinate more often than normal. Caffeine is found in coffee, tea and sodas. ? Losing weight, if that is recommended. ? Keep a journal or a log. You might be asked to record how much you drink and when and when you feel the need to urinate. This will also help evaluate how well the treatment provided by your physician is working. SEEK MEDICAL CARE IF: ? Your need to urinate often gets worse. ? You feel increased pain or irritation when you urinate. ? You notice blood in your urine. ? You have questions about any medications that your healthcare provider recommended. ? You notice blood, pus or swelling at the site of any test or treatment procedure. ? You develop a fever of more than 100.5? F (38.1? C). SEEK IMMEDIATE MEDICAL CARE IF: You develop a fever of more than 102.0? F (38.9? C). Document Released: 04/04/2010 Document Revised: 08/30/2012 Document Reviewed: 04/04/2010 ExitCare? Patient Information ?2013 [employer] [facility] Urology Office/Clinic Noteon 05-25-2020 Urology Office/Clinic Note Chief Complaint Dr. Colmenares referred Pt. for recurrent UTI. HPI Staff Dr. Colmenares referred Pt. for recurrent UTI. Pt. states 2 weeks ago she seen Dr. Colmenares and had urine culture done at the hospital and it came back neg. Dr. Colmenares kept Pt. on ABX even though urine culture was neg. Pt. states her symptoms where better while she was taking the ABX. Pt. states if she need to be put on any medications for her bladder or leaking she would like it to be holistic. Pain with urination:No Blood in urine:No Incomplete bladder emptying:Mild occasionally Frequency:Moderate Pt. states she will urinate and ten min later she will have to urinate again and very little out put of urine. Urgency:Severe Nocturia:Mild 3x's Urination requires straining:No Stream:No Leaking before getting to the restroom:Mild Urinary incontinence without sensory awareness:Mild Temporarily unable to restrain urination with body movement:Mild pt. states will leak if she does exercises. Pt. states she would leak when she would walk 5 miles. Wearing pad/Depends:Yes pt. states she would a pad during her long walks. Flank/Back pain:No Abdominal pain:No History of Present Illness Pt is here for Dr. Colmenares referral due to Recurrent UTI's. Reviewed UA and C&S. Pt has no associated symptoms, no fever, no chills, no flank pain. I discussed all the above with the patient. She is actually not experiencing recurrent urinary tract infections. She is having stress incontinence symptomatology with extreme exercise. She does not have the stress incontinence with routine activities during the day, including lifting things off the floor etc. She has not had a history or a current history of infections and the most recent urine culture obtained by Dr. Colmenares is contaminated. She is never had children. Review of Systems ROS - Provider Constitutional: denies weight loss, denies hot flashes. Eyes: denies eye problems. Gastrointestinal: denies nausea, denies vomiting. Cardiovascular: denies chest pain or angina. Integumentary: no dryness Musculoskeletal: denies musculoskeletal symptoms. ENMT: denies otolaryngeal symptoms. Respiratory: no shortness of breath. Heme/Lymph: denies easy bleeding tendency, denies easy bruising tendency. Psychiatric: no confusion, no anxiety. Genitourinary: denies vaginal discharge, mild incontinence, denies dysuria, denies hematuria, mild urinary frequency, denies amenorrhea, denies menorrhagia, denies abnormal bleeding, denies pelvic pain, denies genital sores, and denies decreased libido. Physical Exam Vitals & Measurements HR: 65(Peripheral) RR: 16 BP: 125/69 HT: 168 cm HT: 168.0 cm General Appearance: alert , no acute distress, well nourished, well developed female. Head: normocephalic . Eyes: normal orbit and globe. ENMT: normal examination of external ears. Chest: Lungs CTA, respirations non labored . Cardiovascular: regular rate and rhythm. Abdomen: soft, non distended, no tenderness, no mass or organomegaly, no hernia. Genitourinary: bladder nonpalpable, no flank tenderness. Lymph Nodes: unremarkable palpation of the cervical area. Skin: warm, dry, no bruising. Psychiatric: cooperative, affect appropriate for age, normal judgement, euthymic mood. Assessment/Plan 1. Frequent urination (R35.0: Frequency of micturition) Mild, ongoing Discussed performing a cystoscopy/UD. This procedure has been explained to the patient in detail, all risks and benefits have been addressed. All of their questions and concerns have been discussed and answered so the patient can understand. The patient voices his/her inform consent and wishes to proceed with this procedure. Will schedule Cysto with UD. The procedure risks, benefits, details, and treatment alternatives have been discussed with the patient. These include bleeding, infection, recurrent scar in over 50%, need for repeat dilation or other procedures, no symptom relief with dilation, among others. Full informed consent has been obtained. Will order Local anesthesia. 2. Nocturia (R35.1: Nocturia) Mild, 3x a night 3. Incontinence without sensory awareness (N39.42: Incontinence without sensory awareness) Mild, has to wear pad on long walks. 4. Stress incontinence (N39.3: Stress incontinence (female) (male)) Moderate, worse with exercise We had an extensive discussion about the difference between stress incontinence and urgency incontinence. She has none of the latter. Discussed the importance of Kegel exercises and she feels he may have to increase with this tact of treatment. Given the possibility of incomplete bladder emptying is my recommendation for cystoscopy and possible dilation as noted above. She agrees with that. She would like to avoid any medications or any surgical intervention if at all possible. Currently her symptoms are not bad enough to warrant surgical intervention but she does want to proceed with bladder evaluation as noted. Follow-up With When Contact Information BEHZAD VARGAS, Jose A Carroll Additional Instructions: Patient Education Kegel Exercises Overactive Bladder, Adult Urinary Frequency I, Lorena Blake, personally scribed for Dr. Wen on 05/25/2020 11:12:08. . Documentation recorded by the scribe, Lorena Rahman, accurately reflects the services(s) I performed and decisions made by me. Authenticated by Dr. Wen on 05/25/2020 11:21:40. Problem List/Past Medical History Ongoing Frequent urination Incontinence without sensory awareness Nocturia Stress incontinence Historical No qualifying data Procedure/Surgical History Colonoscopy. Medications No active medications Allergies No Known Allergies Social History Alcohol - Low Risk, 05/25/2020 Tobacco Cigarettes, 05/25/2020 Family History Arthritis: Mother. Primary malignant neoplasm of female breast: Mother. Immunizations Vaccine Date Status influenza virus vaccine, inactivated 04/27/2020 Recorded Lab Results Ambulatory Point of Care Results Bilirubin Urine Dipstick: Negative (05/25/20 10:23:00) Blood Urine Dipstick: Negative (05/25/20 10:23:00) Glucose Urine Dipstick: Negative (05/25/20 10:23:00) Ketones Urine Dipstick: Negative (05/25/20 10:23:00) Leukocytes Urine Dipstick: Negative (05/25/20 10:23:00) Nitrite Urine Dipstick: Negative (05/25/20 10:23:00) Protein Urine Dipstick: Negative (05/25/20 10:23:00) Specific Dora Urine Dipstick: 1.020 (05/25/20 10:23:00) Urine Appearance Urine Dipstick: Clear (05/25/20 10:23:00) Urine Color Urine Dipstick: Yellow (05/25/20 10:23:00) Urobilinogen Urine Dipstick: Normal 0.2-1 EU/dl (05/25/20 10:23:00) pH Urine Dipstick: 6 (05/25/20 10:23:00) Normal [facility] Comment on above: Result Comment: Elec tronically Signed By: Jose A WEN MD\.br\Date and Time Signed: 05/25/20 11:23 EST\.br\Electronically Co-Signed By: Lorena Blake\.br\Date and Time Co-Signed: 05/25/20 11:18 EST Vital Signs Date Time Vital Sign Value Performing Clinician Facility 02-13-2025 14:31-0400 Body weight 64.77 kg Erendira SAAVEDRA Work Phone: [facility] 02-13-2025 14:31-0400 Diastolic blood pressure 64 mm[Hg] Erendira SAAVEDRA Work Phone: [facility] 02-13-2025 14:31-0400 Systolic blood pressure 112 mm[Hg] Erendira SAAVEDRA Work Phone: [facility] 11-28-2024 11:43-0400 Body height 167.64 cm [facility] 11-28-2024 11:43-0400 Body mass index (BMI) [Ratio] 23.7 kg/m2 [facility] 11-28-2024 11:43-0400 Body temperature 97.8 [degF] [facility] 11-28-2024 11:43-0400 Body weight 66.67 kg [facility] 11-28-2024 11:43-0400 Diastolic blood pressure 76 mm[Hg] [facility] 11-28-2024 11:43-0400 Heart rate 72 /min [facility] 11-28-2024 11:43-0400 SaO2% (BldA) [Mass fraction] 96 % [facility] 11-28-2024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 left butt cheek November 28 11:40am Reason for Visit Admit Date Acute URI October 05, 2024 11: 21am Screening for diabetes mellitus November 11:40am Screening for cardiovascular condition J [facility] 2024 11:40am Chronic fatigue November 28, 2024 11:40 am Rash and nonspecific skin eruption November 28, 2024 11:40am Chief Complaint * MRI followup of the left knee. * Left knee pain. * Left knee internal derangement. * MRI results * FUV- Nondisplaced medial tibial plateau fracture * X-Ray's today. * Followup for a left medial tibial plateau fracture. * FUV- Nondisplaced medial tibial plateau fracture * X-Ray's today. Reason for Referral Reason osteoporosis - own t he bone Diagnosis 1 Osteoporosis without current pathological fracture, unspecified osteoporosis type (M81.0) Referral Organization [facility] Referring Provider First Name Duke Referring Provider Last Name Harry Referring Provider Specialty Family Prac jessika Referred Organization [facility] Referred Provider Milagros Camp Referred Address [address] [place],[address] Referred Provider Specialty Nurse Practi tioner Referral Priority Routine Additional Source Comments INFORMATION SOURCE (unrecogn ized section and content) DATE CREATED AUTHOR 05/26/2020 [facility] DATE CREATED AUTHOR AUTHOR'S ORGANIZ ATION 12/29/2021 [facility] DATE CREATED AUTHOR AUTHOR'S ORGANIZ ATION 01/24/2022 [facility] DATE CREATED AUTHOR AUTHOR'S ORGANIZ ATION 01/29/2022 [facility] DATE CREATED AUTHOR AUTHOR'S ORGANIZ ATION 02/11/2024 [facility] EPIC DATE CREATED AUTHOR AUTHOR'S ORGANIZ ATION 12/25/2024 [facility] Goals (unrecognized section and content) Goals may be documented in a n alternate sectionNo InformationNo InformationGoals may be documented in an alternate sectionNo InformationNo InformationNo InformationNo InformationNo InformationGoals may be documented in an alternate sectionNo InformationGoals may be documented in an alternate sectionNo InformationGoals may be documented in an alternate sectionGoals may be documented in an alternate sectionGoals may be documented in an alternate sectionGoals may be documented in an alternate section REASON FOR VISIT (unrecogniz ed section and content) Reason Comments Well Women Visit Care Teams (unrecognized sec tion and content) Team Status: Inactive Member Role Status Dates Duke Sung DO Primary Care Provider Active Gene Bryn Walton MD Attending Provider Active Team Status: Active Member Role Status Dates Duke Sung DO Primary Care Provider Active Team Status: Inactive Member Role Status Dates Duke Sung DO Primary Care Provider Active Milagros Camp , COLIN-C Attending Provider Active Team Status: Inactive Member Role Status Dates Duke Sung DO Primary Care Provider, Attending Provider Active Team Status: Inactive Member Role Status Dates Duke Sung DO Primary Care Provid er, Attending Provider Active Start: January 26, 2024 End: January 26, 2024 Team Status: Inactive Member Role Status Dates Duke Sung DO Primary Care Provider Active Start: May 02, 2024 End: May 02, 2024 Erendira Win PA-C Attending Provider Active Sta rt: May 02, 2024 End: May 02, 2024 Chemical Sales Representative Relationship Specialty Start Date End Date Duke Sung MD [address] [place] [phone] PCP - [facility] 11/26/22 Chemical Sales Representative Relationship Specialty Start Date End Date Duke Sung MD [address] [place] [phone] PCP - [facility] 11/26/22 Team Status: Inactive Member Role Status Dates Duke Sung DO Primary Care Provid er, Attending Provider Active Start: October 05, 2024 End: October 05, 2024 Team Status: Inactive Member Role Status Dates Duke Sung DO Primary Care Provid er, Attending Provider Active Start: November 28, 2024 End: November 28, 2024 Chemical Sales Representative Relationship Specialty Start Date End Date Duke Sung MD PCP - [facility] 11/26/22 Chemical Sales Representative Relationship Specialty Start Date End Date Duke Sung MD PCP - [facility] 11/26/22 Chemical Sales Representative Relationship Specialty Start Date End Date Duke Sung MD [address] [place] [phone] PCP - [facility] 11/26/22 FOR RECORDS PERTAINING TO PATIENTS WHO ARE OR HAVE BEEN ENROLLED IN A CHEMICAL DEPENDENCY/SUBSTANCEABUSE PROGRAM, SOME INFORMATION MAY BE OMITTED. This clinical summary was aggregated from multiple sources. Caution should be exercised in using it in the provision of clinical care. This summary normalizes information from multiple sources, and as a consequence, information in this document may materially change the coding, format and clinical context of patient data. In addition, data may be omitted in some cases. CLINICAL DECISIONS SHOULD BE BASED ON THE PRIMARY CLINICAL RECORDS. [facility]. provides no warranty or guarantee of the accuracy or completeness of information in this document.
--- OUTSIDE RECORDS SUMMARY | 2025-02-13 20:35 | XMS_ITS | Encounter Summary ---
Author Organization [facility] Address [address] [facility] [place] [address] Care Team Providers Care Process Coordinator Name Role Phone Ashish Mcdonald MD Primary Care Provider Encounter Details Date Type Department Care Team (Late st Contact Info) Description 02/13/2025 Bamboo flowsheet [facility] [address] [place] [address] [place] [phone] Erendira Dunn PA [address] [place], [place] [address] Social History Tobacco Use Types Packs/Day Years [...] 2:00 PM EDT Procedure Visit [facility] [address] [facility] [place] [phone] Erendira Dunn, PA [address] [place], [facility] documented as of this encounter Visit Diagnoses Not on filedocumented in this encounter Care Teams Process Coordinator Relationship Specialty Start Date End Date Ashish Mcdonald MD [address] [place] [phone] PCP - General Family Medicine 11/26/22 documented as of this encounter
--- OUTSIDE RECORDS SUMMARY | 2025-02-13 20:35 | XMS_ITS | Encounter Summary ---
Author Organization [facility] Address [address] [facility] [place] [address] Care Team Providers Care Caustic Room Operator Name Role Phone Ashish Mcdonald MD Primary Care Provider Encounter Details Date Type Department Care Team (Late st Contact Info) Description 03/15/2024 Abstract [facility] [address] [facility] [place] [phone] Stiven Mehta DO [address] [facility] [address] [place], [facility] Social History Tobacco Use Types Packs/Day Years [...] EDT Procedure Visit [facility] [address] [facility] [place] [phone] Erendira Dunn PA [address] [facility] [address] [place], [facility]11 documented as of this encounter Visit Diagnoses Not on filedocumented in this encounter Care Teams Caustic Room Operator Relationship Specialty Start Date End Date Ashish Mcdonald MD [address] [place] [phone] PCP - General Family Medicine 11/26/22 documented as of this encounter
--- OUTSIDE RECORDS SUMMARY | 2025-02-13 20:35 | XMS_ITS | Encounter Summary ---
Author Organization [facility] Address [address] [facility] [place] [address] Care Team Providers Care Press Operator Name Role Phone Ashish Mcdonald MD Primary Care Provider [phone] Encounter Details Date Type Department Care Team (Latest Contact Info) Description 02/12/2025 Travel Social History Tobacco Use Types Packs/Day Years [...] Description 02/20/2026 2:00 PM EDT Procedure Visit [facility] [address] [place] [phone] Erendira Dunn PA [address] [facility] [address] [place], [facility]11 documented as of this encounter Visit Diagnoses Not on filedocumented in this encounter Care Teams Press Operator Relationship Specialty Start Date End Date Ashish Mcdonald MD [address] [place] [address] PCP - General Family Medicine 11/26/22 documented as of this encounter
--- OUTSIDE RECORDS SUMMARY | 2025-02-13 20:35 | XMS_ITS | Encounter Summary ---
Author Organization [facility] Address [address] [facility] [place] [address] Care Team Providers Care Chief Psychologist Name Role Phone Ashish Mcdonald MD Primary Care Provider [phone] Encounter Details Date Type Department Care Team (Late st Contact Info) Description 04/11/2024 Abstract [facility] [address] [facility] [place] [phone] Stiven eMhta DO [address] [facility] [address] [place], [place] [phone] Social History Tobacco Use Types Packs/Day Years [...] PM EDT Procedure Visit [facility] [address] [facility] [place] [phone] Erendira Dunn PA [address] [facility] [place] [address] documented as of this encounter Visit Diagnoses Not on filedocumented in this encounter Care Teams Chief Psychologist Relationship Specialty Start Date End Date Ashish Mcdonald MD [address] [place] [phone] PCP - General Family Medicine 11/26/22 documented as of this encounter
--- OUTSIDE RECORDS SUMMARY | 2025-02-13 20:35 | XMS_ITS | Encounter Summary ---
Author Organization [facility] Address [address] [facility] [place] [address] Care Team Providers Care Lumber Stacker Operator Name Role Phone Ashish Mcdonald MD Primary Care Provider Encounter Details Date Type Department Care Team (Late st Contact Info) Description 10/12/2023 Abstract [facility] [address] [facility] [place] [phone] Tyesha Keenan LPN [address] [place] [id number] Social History Tobacco Use Types Packs/Day Years [...] 02/20/2026 2:00 PM EDT Procedure Visit [facility] [address] [place] [address] [place] [phone] Erendira Dunn PA [address] [facility] [place] [address] documented as of this encounter Visit Diagnoses Not on filedocumented in this encounter Care Teams Lumber Stacker Operator Relationship Specialty Start Date End Date Ashish Mcdonald MD [address] [place] [phone] PCP - General Family Medicine 11/26/22 documented as of this encounter
--- OUTSIDE RECORDS SUMMARY | 2025-02-13 20:35 | XMS_ITS | Encounter Summary ---
Author Organization [facility] Address [address] [facility] [place] [address] Care Team Providers Care Timber Watchman Name Role Phone Ashish Mcdonald MD Primary Care Provider Encounter Details Date Type Department Care Team (Late st Contact Info) Description 03/15/2024 Abstract [facility] [address] [facility] [phone] Stiven Mehta DO [address] [facility] [address] [place], [facility]11 Social History Tobacco Use Types Packs/Day Years [...] EDT Procedure Visit [facility] [address] [facility] [place] [phone] Erendira Dunn PA [address] [facility] [address] [place], [facility]11 documented as of this encounter Visit Diagnoses Not on filedocumented in this encounter Care Teams Timber Watchman Relationship Specialty Start Date End Date Ashish Mcdonald MD [address] [place] [phone] PCP - General Family Medicine 11/26/22 documented as of this encounter
--- OUTSIDE RECORDS SUMMARY | 2025-02-13 20:35 | XMS_ITS | Clinical Summary ---
Author Organization [facility] Address [address] [facility] [place] [address] Care Team Providers Care Recep Name Role Phone Ashish Mcdonald MD Primary Care Provider [phone] Allergies No known active allergies Medications No known medications Active Problems Problem Noted Date Diagnosed Date Bladder leak 02/16/2024 Encounters Date Type Department Care Team Description 02/13/2025 2:00 PM EDT Office Visit [facility] [address] [place] [address] Erendira Dunn PA Well woman exam with routine gynecological exam; Breast cancer screening by mammogram; Postmenopausal state 02/13/2025 Bamboo flowsheet [facility] [address] [place] [address] Erendira Dunn PA 02/12/2025 Travel 01/04/2025 Clinisync Result Encounter [facility] External Department Unsolicited Keisha Mehta DO from Last 3 Months Family History Medical History Relation Name Comments [...] Pressure 112/64 02/13/2025 2:31 PM EDT Pulse 72 12/28/2022 11:10 AM EDT Temperature 36.5 C (97.7 F) 12/28/2022 11:10 AM EDT Respiratory Rate - - Oxygen Saturation 98% 12/28/2022 11: 10 AM EDT Inhaled Oxygen Concentration - - Weight 64.8 kg (142 lb 12.8 oz) 02/13/2025 2:31 PM EDT Height - - Body Mass Index - - Plan of Treatment Upcoming Encounters Date Type Department Care Team (Late st Contact Info) Description 02/20/2026 2:00 PM EDT Procedure Visit [facility] [address] [place] [address] Erendira Dunn PA [address] [place] [address] Procedures Procedure Name Priority Date/Time Associated Diagnosis Comments MM TOMOSYNTHESIS SCREENING BI 01/04/2025 2:15 PM EDT from Last 3 Months Results * MM TOMOSYNTHESIS SCREENING BI (01/04/2025 2:15 PM EDT) Anatomical Region Laterality Modality Other 01/04/2025 2:15 PM EDT Narrative 01/04/2025 2:16 PM EDT The [address] [address] Mammography Report Signed Patient: FRANCK MCKENZIE MR#: [id number] : 1965 Acct:[id number] Age/Sex: 59 / F ADM Date: 01/04/25 Loc: MAMMO Attending Dr: Keisha Mehta D.O. Ordering Physician: Keisha Mehta D.O. Results: Date of Service: 01/04/25 Follow Up: Procedure(s): MM tomosynthesis screening BI Accession Number(s): [id number] cc: ASHISH MCDONALD; Keisha Mehta D.O. Patient Name: FRANCK MCKENZIE MR#: [id number] : 1965 Exam Date: 01/04/2025 Ordering Doctor: [...] breast cancer at age 54. LOCATION: The [facility] BREAST COMPOSITION: The breasts are heterogeneously dense, [...] Signed By: 01/04/25 1416 DD/ 1415 TD/TT: Brass Pickler: Procedure Note Radiology, Radiologist, MD - 01/04/2025 [place] [address] Mammography Report Signed Patient: FRANCK MCKENZIE MMR#: [id number] : 1965Acct:[id number] Age/Sex: 59 / FADM Date: 01/04/25 Loc: MAMMO Attending Dr: Keisha Mehta D.O. Ordering Physician: Keisha Mehta D.O.Results: Date of Service: 01/04/25Follow Up: Procedure(s): MM tomosynthesis screening BI Accession Number(s): [id number] cc: ASHISH MCDONALD; Keisha Mehta D.O. Patient Name: FRANCK MCKENZIE MR#: [id number] : 1965 Exam Date: 01/04/2025 Ordering Doctor: DR KEISHA MEHTA . RADIOLOGY REPORT PROCEDURE: MM TOMOSYNTHESIS SCREENING BI COMPARISON: MM TOMOSYNTHESIS SCREENING BI, 01/01/2024. MMTOMOSYNTHESIS SCREENING BI, 12/29/2022. MG MAMM SCREEN 3D ZEV CAD, 12/25/2021. MAMMOPOST BIOPSY UNILATERAL LEFT, 09/27/2008. INDICATIONS: Screening Calculator Name NCI Breast Cancer Risk Assessment Tool 5 Year Breast Cancer Risk 3.90% Lifetime Breast Cancer Risk 18.50% Personal Breast Cancer No Personal Ovarian Cancer No Treatments None Family Cancers Mother with breast cancer at age 55. LOCATION: The [facility] BREAST COMPOSITION: The breasts are heterogeneously dense, [...] 14:15 Dictated By: Jasson Bell M.D. Signed By:01/04/25 1416 DD/ 1415 TD/TT: Brass Pickler: Keisha Mehta DO [facility] Final Result from Last 3 Months Insurance [employer] Member Subscriber Plan / Payer (Ef fective 2025-Present) Name:Franck Mckenzie Relation to Subscriber:Self Name:Franck Mckenzie Payer ID:Not on file Type:Not on file Address: [place] [id number] Care Teams Recep Relationship Specialty Start Date End Date Ashish Mcdonald MD [address] [place] [address] PCP - General Family Medicine 11/26/22
--- OUTSIDE RECORDS SUMMARY | 2025-02-13 20:35 | XMS_ITS | Encounter Summary ---
Author Organization [facility] Address [address] [facility] [place] [address] Care Team Providers Care Grain Farmworker Name Role Phone Duke Mcdonald MD Primary Care Provider [phone] Encounter Details Date Type Department Care Team (Late st Contact Info) Description 01/01/2024 Clinisync Result Encounter [facility] External Department Unsolicited Stiven Mehta DO [address] [place] [address] Social History Tobacco Use Types Packs/Day Years [...] 2:00 PM EDT Procedure Visit [facility] [address] [place] [phone] Erendira Dunn PA [address] [place] [address] documented as of this encounter Procedures Procedure Name Priority Date/Time Associated Diagnosis Comments MM TOMOSYNTHESIS SCREENING BI 01/01/2024 12:58 PM EDT documented in this encounter Results * MM TOMOSYNTHESIS SCREENING BI (01/01/2024 12:58 PM EDT) Anatomical Region Laterality Modality Other 01/01/2024 12:5 8 PM EDT Narrative 01/01/2024 12:59 [place] [address] Mammography Report Signed Patient: FRANCK MCKENZIE MR#: [id number] : 1965 Acct:[id number] Age/Sex: 58 / F ADM Date: 01/01/24 Loc: MAMMO Attending Dr: Stiven Mehta D.O. Ordering Physician: Stiven Mehta D.O. Results: Date of Service: 01/01/24 Follow Up: Procedure(s): MM tomosynthesis screening BI Accession Number(s): [id number] cc: DUKE MCDONALD; Stiven Mehta D.O. Patient Name: FRANCK MCKENZIE MR#: [id number] : 1965 Exam Date: 01/01/2024 Ordering Doctor: [...] breast cancer at age 54. LOCATION: The [facility] BREAST COMPOSITION: The breasts are extremely dense, [...] Signed By: 01/01/24 1259 DD/ 1258 TD/TT: R&D Lab Technician: Procedure Note Radiology, Radiologist, MD - 01/01/2024 The [place] [id number] Mammography Report Signed Patient: FRANCK MCKENZIE MMR#: [id number] : 1965Acct:[id number] Age/Sex: 58 / FADM Date: 01/01/24 Loc: MAMMO Attending Dr: Stiven Mehta D.O. Ordering Physician: Stiven Mehta D.O.Results: Date of Service: 01/01/24Follow Up: Procedure(s): MM tomosynthesis screening BI Accession Number(s): [id number] cc: DUKE MCDONALD; Stiven Mehta D.O. Patient Name: FRANCK MCKENZIE MR#: [id number] : 1965 Exam Date: 01/01/2024 Ordering Doctor: DR Stiven Mehta . RADIOLOGY REPORT PROCEDURE: MM TOMOSYNTHESIS SCREENING BI COMPARISON: MM TOMOSYNTHESIS SCREENING BI, 12/29/2022. MG MAMM [id number] ZEV CAD, 12/25/2021. INDICATIONS: Screening Calculator Name NCI Breast Cancer Risk Assessment Tool 5 Year Breast Cancer Risk 3.70% Lifetime Breast Cancer Risk 18.90% Personal Breast Cancer No Personal Ovarian Cancer No Treatments None Family Cancers Mother with breast cancer at age 55. LOCATION: The [facility] BREAST COMPOSITION: The breasts are extremely dense, [...] M.D. Signed By:01/01/24 1259 DD/ 1258 TD/TT: R&D Lab Technician: us Stiven Janine DO [facility] Final Result documented in this encounter Visit Diagnoses Not on filedocumented in this encounter Care Teams Grain Farmworker Relationship Specialty Start Date End Date Duke Mcdonald MD [address] [place] [id number] PCP - General Family Medicine 11/26/22 documented as of this encounter
--- OUTSIDE RECORDS SUMMARY | 2025-02-13 20:35 | XMS_ITS | Clinical Summary ---
Author Organization [facility] Address [address] [place] [address] Phone Care Team Providers Care Therapy Technician Name Role Phone Unavailable Primary Care Provider [...] 11/25/2021 8:38 AM EDT Plan of Treatment Not on file
[2025-02-16 18:10] LABS: Age Gdln ACOG Testing Note (.); IGP, Aptima HPV, rfx 16/18,45 Note (.)
== END 2025-02-13 20:25 | disposition home or self-care (01) ==
LOC: LAB 20:24
PROVIDERS: PCP Family Medicine; Visit Provider Physician Assistant
DX: Z01.419 Encounter for gynecological examination (general) (routine) without abnormal findings (principal)
CPT/HCPCS: 87624; 88175